=== PATIENT | female | born 1950 | race African-American/Black ===

== ENCOUNTER 2023-08-22 22:11 | Inpatient (IN) | payer MEDICARE, MEDICAID, SELFPAY ==
--- NOTE | ~2023-08-22 | CT_ITS ---
EXAMINATION: CT soft tissue neck chest wo DATE: 08/23/2023 17:00 INDICATION: Stridor. 3 months post tracheostomy reversal. Shortness of breath. Positive RSV. History of COPD. TECHNIQUE: Computed tomography (CT) of the neck and chest was performed without intravenous contrast. Automated exposure control and iterative reconstruction technique were employed. The dose-length pro duct was 1649.44 mGy-cm. COMPARISON: X-ray chest 08/22/2023 FINDINGS: Exam limited by mild motion artifact. Soft tissue neck: The thyroid gland is markedly enlarged. 1.6 cm peripherally calcified right thyroid nodule. 1.8 cm le ft thyroid nodule. The submandibular and parotid glands are symmetric. There is no cervical lympha denopathy. There are no masses identified. The superior mediastinum is unremarkable. Focal narr owing of the trachea at the thoracic inlet, minimum transverse diameter 8mm. Minimum AP diameter 9 mm . Apparent debris just distal to the stenosis seen in the chest series not evident, representing eith er interval clearance of secretions or artifact from motion/volume averaging. Parapharyngeal and pre -glottic fat planes are preserved. The orbits are unremarkable. Visualized sinuses and mastoid air cells are well aerated. There is cervical spondylosis. Severe central canal narrowing at C3-4. Mul tilevel moderate central canal stenosis on a degenerative basis, with the suggestion of congenital di ffuse cervical canal narrowing. Chest: Thoracic aorta: Ascending thoracic aortic ectasia measuring up to 4.2 cm. Moderate thoracic aortic ca lcification. Lung parenchyma and airways: Diffuse mild groundglass opacities. Mild septal thickening. Bibasilar sc ar/atelectasis. Mid trachea, distal trachea, and bronchi are patent. Thoracic inlet, axillae and chest wall: No thyroid or soft tissue mass. No axillary lymphadenopathy. Mediastinum: Dilated central pulmonary arteries as can be seen with pulmonary arterial hypertension. Enlarged pretracheal and precarinal lymph nodes. Heart and pericardium: Enlarged heart. No pericardial effusion. Normal termination of the pacer leads . Coronary artery calcifications: Moderate. Pleura: No effusion or mass. Upper abdomen: No significant finding. Thoracic bones: No acute osseous finding in the chest. Multilevel severe degenerative disc disease in the thoracic spine. Bilateral shoulder osteoarthritis. Laminectomy defects at T6 and T7. Severe cent ral canal stenosis at T10-11 secondary to degenerative disc and facet change. Multiple additional lev els of moderate central canal narrowing. 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 Marked thyroid goiter with multiple nodules. Consider outpatient thyroid ultrasound for further evalu ation. Severe cervical canal stenosis at C3-4 secondary to degenerative posterior osteophyte complex. At magno st moderate central canal stenosis at multiple additional levels, also largely due to degenerative ch anges, with likely component of diffuse congenital canal narrowing. Mild pulmonary edema and emphysematous change. Likely pulmonary arterial hypertension. Mediastinal ly mphadenopathy. Severe thoracic canal stenosis at T10-11 secondary to degenerative disc and facet change. Reviewed, dictated and finalized at location K. 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 Marked thyroid goiter with multiple nodules. Consider outpatient thyroid ultras ound for further evaluation. Severe cervical canal stenosis at C3-4 secondary to degenerative posterior oste ophyte complex. At least moderate central canal stenosis at multiple ad
--- NOTE | ~2023-08-22 | XR_ITS ---
XR chest 1V portable 08/22/2023 22:29 Indication: Dyspnea. CHF. Procedure: AP portable chest Comparison: No prior studies for comparison. Findings: Cardiomegaly. Pacemaker leads in expected position. Mild interstitial edema. No significant effusion. No pneumothorax. There is atelectasis left mid thorax. Impression: 1: Cardiomegaly with mild interstitial edema. Reviewed, dictated and finalized at location A. VICE PRESIDENT Impression: 1: Cardiomegaly with mild interstitial edema.
[2023-08-22 22:07] VITALS: PULSE 105; RESP 22; TEMP 37; O2SAT 92
[2023-08-22 22:14] VITALS: O2SAT 93
--- NOTE | 2023-08-22 22:15 | ECG_ITS ---
Measurements Intervals [place] Rate: 108 P: 50 CA: 175 QRS: -29 QRSD: 91 T: 13 QT: 333 QTc: 447 Interpretive Statements SINUS TACHYCARDIA POSSIBLE LEFT ATRIAL ENLARGEMENT [-0.1mV P WAVE IN V1/V2] INCOMPLETE RIGHT BUNDLE BRANCH BLOCK CONSIDER PREVIOUS INFERIOR WALL CT ABNORMAL ECG NO PREVIOUS ECG AVAILABLE FOR COMPARISON Electronically Signed On 08-23-2023 9:04:43 RFID DEVELOPER by Juanjose Escobar M.D.
--- NOTE | 2023-08-22 22:25 | ED.SOB ---
HPI - SOB/Dyspnea General Chief Complaint: Shortness of Breath/Dyspnea Stated Complaint: sob Time Seen by Provider: 08/22/23 22:13 History of Present Illness HPI Narrative: 73-year-old female with history of CHF, COPD, CKD, breast cancer in remission for the past 15 years, hx of cardiac arrest, atrial fibrillation chronically anticoagulated on Eliquis, HLD, prior CVA with residual right-sided weakness, and type 2 diabetes reports [facility] for shortness of breath x3 hours. Patient states she began having difficulty breathing and has associated generalized pleuritic chest pain that is nonradiating. Patient with 3 L nasal cannula baseline and is currently on 5L satting 92%. She also is reporting a productive cough that started 1 hour ago. Denies known fever, nausea or vomiting, diarrhea, abdominal pain, urinary complaints. Patient received 10 mg of Decadron and a DuoNeb EN route. Patient denies lower extremity edema, however has large amount of pitting edema on exam. All of her physicians are at [facility]. States she has been compliant with her medications and has a defibrillator in place. Paperwork from jail reviewed. Pt is a full code which she confirms. Related Data Home Medications Medication Instructions Recorded Confirmed apixaban 5 mg tablet (Eliquis) 5 mg 08/22/23 bethanechol chloride 10 mg tablet mg 08/22/23 duloxetine 60 mg capsule,delayed mg PO 08/22/23 release gabapentin 400 mg capsule mg 08/22/23 hydroxyzine HCl 25 mg tablet mg 08/22/23 ipratropium 0.5 mg-albuterol 3 mg ml inhalation 08/22/23 (2.5 mg base)/3 mL nebulization soln lisinopril 20 mg tablet mg 08/22/23 metformin 500 mg tablet mg 08/22/23 metoprolol tartrate 25 mg tablet mg 08/22/23 montelukast 10 mg tablet mg 08/22/23 ondansetron HCl 4 mg tablet mg 08/22/23 oxycodone 5 mg tablet mg 08/22/23 tizanidine 4 mg tablet mg 08/22/23 Allergies Allergy/AdvReac Type Severity Reaction Status Date / Time blue dye Allergy Other Verified 08/22/23 22:28 iohexol Allergy Other Verified 08/22/23 22:28 [From contrast - CT, X-RAY] morphine Allergy Rash Verified 08/22/23 22:28 Review of Systems Review of Systems: CONSTITUTIONAL: Denies fever, chills, or sweats. EYES: Denies visual changes, redness, or discharge. ENT: Denies rhinorrhea, congestion, sore throat, or otalgia. CARDIOVASCULAR: See HPI RESPIRATORY: See HPI GASTROINTESTINAL: Denies abdominal pain, nausea, vomiting, or diarrhea. GENITOURINARY: Denies dysuria or hematuria. SKIN: Denies rash or itching. MUSCULOSKELETAL: Denies back pain, joint pain, or myalgia. NEUROLOGIC: Denies headache, numbness, or weakness. PSYCHIATRIC: Denies anxiety or depression. Exam Narrative: GENERAL: Elderly obese woman lying in exam bed, on 5 L nasal cannula satting 92% with auditory wheezing HEAD: Normocephalic, atraumatic. EYES: PERRLA and EOMI. ENT: Nares clear, no rhinorrhea or epistaxis. Mucous membranes moist. NECK: Supple. CHEST: Absent lung sounds in the left lower lobe. Inspiratory and expiratory Wheezing throughout left upper, right upper and right lower lobes. Expiratory phase longer than inspiratory phase. HEART: Regular rate and rhythm. No murmur heard. Normal peripheral pulses. ABDOMEN: Soft, nontender, nondistended, normal active bowel sounds. EXTREMITIES: 4+ pitting edema to dorsum of bilateral feet SKIN: Warm, dry, no rash. NEURO: No focal deficits. Alert and oriented x3 Course Vital Signs Vital signs: Vital Signs Temperature 98.6 F 08/22/23 22:07 Pulse Rate 105 H 08/22/23 22:07 Respiratory Rate 22 H 08/22/23 22:07 Pulse Oximetry 92 08/22/23 22:07 Oxygen Delivery Nasal Cannula 08/22/23 22:07 Oxygen Flow Rate 3 08/22/23 22:07 Temperature 98.6 F 08/22/23 22:07 Pulse Rate 80 08/23/23 01:12 Respiratory Rate 22 H 08/23/23 01:12 Blood Pressure 138/82 08/23/23 01:12 Pulse Oximetry 94 08/23/23 01:12 Oxyg
[2023-08-22] MEDS: ALBUTEROL SULFATE NEB 2.5 MG/3 ML INH 10 MG INHALATION (22:55)
[2023-08-22] MEDS: IPRATROPIUM BR 0.02% INH SOLN 0.5 MG/2.5 ML VIAL 1 MG INHALATION (22:55)
[2023-08-22 22:56] VITALS: PULSE 89; RESP 15
[2023-08-22 23:05] LABS: Alveolar/Arterial O2 Gradient 148.1 mmHg; Base Excess ABG 6.8 mEq/l (+/-2.0); Fractional Inspired Oxygen 40 %; HCO3 ABG 34.1 mEq/l (22.0-26.0); Oxygen Content ABG 15.9 %vol (16.0-22.0); Oxygen Saturation ABG 91.5 % (95.0-100.0); Oxyhemoglobin 91.2 % THb (90.0-100.0); PO2 ABG 65.6 mmHg (80.0-100.0); PO2 FiO2 Ratio Arterial Blood 1.64 %; Total Hemoglobin 12.4 g/dL (12.0-18.0); pH ABG 7.357 (7.350-7.450)
[2023-08-22 23:08] LABS: Device NASAL CANNULA; Modified Allen's Test Pass; PCO2 ABG 62.2 mmHg (35.0-45.0); Site Drawn LEFT RADIAL
[2023-08-22 23:10] LABS: Basophils Percent Auto 0.3 % (0.2-1.2); Eosinophils Absolute Auto 0.1 K/mm3 (0-0.3); Eosinophils Percent Auto 1.1 % (0-4.4); Hematocrit 39.8 % (37.0-47.0); Hemoglobin 10.9 g/dL (12.0-15.0); Immature Granulocyte Absolute 0.02 K/mm3 (0.00-0.031); Immature Granulocyte Percent A 0.2 % (0-0.5); Lymphocytes Absolute Auto 1.75 K/mm3 (0.9-3.2); Lymphocytes Percent Auto 19.1 % (18.3-44.2); Mean Corpuscular HGB Conc 27.4 g/dl (32-36); Mean Corpuscular Hemoglobin 22.9 pg (26-34); Mean Corpuscular Volume 83.4 fl (80-100); Mean Platelet Volume 11.6 fl (7.4-10.4); Monocytes Absolute Auto 0.4 K/mm3 (0.1-0.6); Monocytes Percent Auto 3.9 % (2.6-8.5); Neutrophils Absolute Auto 6.9 K/mm3 (1.3-6.7); Neutrophils Percent Auto 75.4 % (45.5-73.1); Platelet Count Result 146 k/mm3 (150-375); Red Blood Count 4.77 M/mm3 (4.2-5.4); White Blood Count 9.2 K/mm3 (4.5-10.0)
[2023-08-22 23:20] LABS: Magnesium 1.6 mg/dL (1.6-2.3)
[2023-08-22 23:24] LABS: Alanine Aminotransferase 19 U/L (6-35); Albumin Level 3.8 g/dL (3.5-5.1); Alkaline Phosphatase 74 U/L (38-126); Anion Gap 7 mmol/L (8-16); Aspartate Amino Transferase 25 U/L (14-36); Bilirubin,Total 0.4 mg/dL (0.2-1.3); Blood Urea Nitrogen 29 mg/dL (7-17); Calcium 9.3 mg/dL (8.4-10.2); Carbon Dioxide 33 mmol/L (22-30); Chloride 100 mmol/L (98-107); Estimated CRCL calculation 71 ml/min; Estimated Glomerular Filt Rate > 60; Glucose 208 mg/dL (65-110); INR 1.2; Prothrombin Time 16.4 Seconds (11.1-14.7); Sodium 140 mmol/L (137-145)
[2023-08-22 23:27] LABS: D Dimer 0.55 ug/mL (<0.48)
[2023-08-22 23:30] LABS: NT Pro B Type Natriuretic Pept 384 pg/mL (19.9-100)
[2023-08-22 23:33] LABS: Troponin I < 0.012 ng/mL (0.000-0.034)
--- NOTE | 2023-08-22 23:48 | PC.NURSE ---
Patient stated that she would like a muscle relaxer before she takes furosemide. Patient states that she gets leg cramps when she takes furosemide. Notified EDP MICHELLE Pinedo.
[2023-08-22] MEDS: TIZANIDINE HCL 4 MG TABLET PO (23:53)
[2023-08-22] MEDS: FUROSEMIDE INJ 40 MG/4 ML VIAL IV PUSH (23:54)
[2023-08-23] VITALS (15 sets, daily range): BP systolic 117–138; BP diastolic 60–82; PULSE 56–88; RESP 16–24; TEMP 36.6–37; O2SAT 94–99; BMI 39.2
[2023-08-23 00:06] LABS: Platelet Estimate Adequate (Adequate)
[2023-08-23 00:07] LABS: Anisocytosis 3+ (NORMAL); Crenated RBC 1+ (NORMAL); Hypochromasia 2+ (NORMAL); Ovalocytes 2+ (NORMAL); Schistocytes Rare (NORMAL); Target Cells 1+ (NORMAL)
[2023-08-23 00:37] LABS: Appearance Urine Cloudy (Clear); Bacteria Urine 4+ /hpf; Bilirubin Urine Negative (Negative); Blood Urine 1+ (Negative); Color Urine Yellow (Yellow); Glucose Urine UA Negative (Negative); Ketones Urine Negative (Negative); Leukocyte Esterase Ur Trace LEU/UL (Negative); Nitrate Urine Negative (Negative); Protein Urine 1+ mg/dL (Negative); Specific Grav Ur 1.012 (1.001-1.035); Squamous Epithelial Cell Urine None seen /hpf (Few); Urobilinogen Urine 0.2 mg/dL (<2.0); pH Urine 5.5 (5.0-9.0)
[2023-08-23 00:40] LABS: Add Urine Microscopic? YES
[2023-08-23 02:03] LABS: Influenza A QL RT-PCR Negative (Negative); Influenza B QL RT-PCR Negative (Negative); RSV RNA, RT-PCR Positive (Negative); SARS-CoV-2 RNA PCR Negative (Negative)
[2023-08-23 02:51] LABS: Troponin I < 0.012 ng/mL (0.000-0.034)
[2023-08-23] MEDS: methylPREDNISolone SOD SUCC 125 MG VIAL 60 MG IV PUSH ×3 (05:23→20:40)
--- NOTE | 2023-08-23 05:47 | PM.IMHP ---
H&P: HPI History of Present Illness Date/Time: 08/23/23 05:47 Chief Complaint: Shortness of breath Narrative: 73-year-old female with a past medical history of morbid obesity, Chronic hypoxic hypercapnic respiratory failure due to COPD, prior tracheostomy with recent closure, CHF, chronic anticoagulation and type 2 diabetes mellitus who presented to the ER from [facility] due to shortness of breath. The patient reports that there been a lot of ill people at the [facility]. She has been trying to isolate herself in her room and avoid going to the dining room. Despite this about 3 or 4 days ago she became more short of breath and started having a cough. Her cough is productive of small amount of clear thin phlegm. She denies any fevers or chills. She has been feeling more fatigued. She has been having more shortness of breath with position changes. She has been having some chest discomfort with cough. She is on chronic home O2 of 3 L nasal cannula. On arrival to the ER patient was satting 92% on 3 L nasal cannula but desatted with position changes and was increased up to 5 L nasal cannula. When I arrived in the room the patient was having intermittent snorting respirations. She reports that it she has had a hoarse voice for about a week or 10 days. She denied having a hoarse voice after having her tracheostomy removed. She reports that her tracheostomy just recently closed all way about a month ago. She denies any difficulty swallowing. She denies any known history of thyroid problems. She denies dysphagia. She has not had any nausea or vomiting. She reports a good appetite. She denies known history of CHF but is on Eliquis and Lasix on her med rec. She denies documented history of COPD but has chronic hypercapnic respiratory failure and had a heavy smoking history until 15 years ago. She reports that she has been at [facility] for about 3 months after a prolonged hospital stay of about [address] [facility]. She had a tracheostomy that was removed about a month ago. She states that is suspected that she has obstructive sleep apnea but she became ill prior to having her sleep study in with never officially tested. She is not on a BiPAP at home. She has chronic urinary incontinence and denies dysuria or changes in urinary frequency. She reports she is not even aware when she needs to urinate. She usually only has a bowel movement every 3-5 days. She does not know if she has been having any bloody or black stools she is dependent upon the [facility] staff to change her. She has diabetic peripheral neuropathy but denies any history of foot wounds worse skin breakdown that she knows of. Source of information is patient and [facility] reports. The patient is a fair to good historian. She cannot give a lot of details regarding her prolonged hospital stay due to her critical condition at the time. Records request has been placed. ER physician physician communication and EMS report were also used to obtain information. The patient has never been at our facility previously. She denies known history of Review of Systems Review of Systems: 12 systems were reviewed with pertinent positives and negatives per HPI. Except as documented in the HPI, all other systems were reviewed and are negative. [facility] Past Medical History Medical History (Updated 08/23/23 @ 08:50 by Lanie Sher DO) Anxiety CHF (congestive heart failure) Chronic respiratory failure with hypoxia and hypercapnia COPD (chronic obstructive pulmonary disease) Coronary artery disease Depression Diabetic peripheral neuropathy Obesity (BMI 30-39.9) Urinary incontinence with continuous leakage Surgical History Surgical History (Updated 08/23/23 @ 08:32 by Lanie Sher DO) History of heart artery stent Multiple History of left knee replacement History of permanent cardiac pacemaker placement (~2002) History of tubal ligation Tracheostomy st
--- NOTE | 2023-08-23 07:19 | ECG_ITS ---
Measurements Intervals [place] Rate: 75 P: 46 CA: 163 QRS: -30 QRSD: 98 T: 1 QT: 400 QTc: 448 Interpretive Statements SINUS RHYTHM POSSIBLE LEFT ATRIAL ENLARGEMENT [-0.1mV P WAVE IN V1/V2] INCOMPLETE RIGHT BUNDLE BRANCH BLOCK CONSIDER PREVIOUS INFERIOR MO ABNORMAL ECG COMPARED TO ECG 08/22/2023 22:16:06 NO DIFFERENCE Electronically Signed On 08-23-2023 9:08:33 ECONOMIC FORECASTER by Juanjose Esocbar M.D.
[2023-08-23 07:58] LABS: Troponin I < 0.012 ng/mL (0.000-0.034)
[2023-08-23 08:42] LABS: Glucose Point of Care 201 mg/dl (65-105)
--- NOTE | 2023-08-23 09:26 | P.PNIM_ITS ---
Progress Note: A&P Assessment and Plan (1) [id number] respiratory failure: Qualifiers: Respiratory failure complication: hypoxia and hypercapnia Qualified Code(s): J96.21 - Acute and chronic respiratory failure with hypoxia; J96.22 - Acute and chronic respiratory failure with hypercapnia Code(s): J96.20 - Acute and chronic respiratory failure, unspecified whether with hypoxia or hypercapnia Status: Acute Assessment and Plan: 08/23/2023: * Chest x-ray showing cardiomegaly with mild interstitial edema, no pleural effusion noted * Wean O2 for an oxygen saturation greater than 88-92% * Patient has a laryngitis/hoarseness/? Stridor sound know whenever she is inhaling and talking. She states that this started on the onset of her illness. * Respiratory panel showing RSV, she was negative for influenza and COVID. * Patient was given 1 dose of racemic epi for possible stridor with no improv ement * We will continue breathing treatments and Solu-Medrol * We will also get a CT of the soft tissues of the neck * Pulmonology consulted due to her difficult airway and evaluation for stridor verses laryngitis/hoarseness * Patient currently on 4 L nasal cannula. She does have a history of COPD and wears 3 L of oxygen on a regular basis which is her baseline. * We will obtain an echo (2) Respiratory syncytial virus (RSV): Code(s): B33.8 - Other specified viral diseases Status: Acute Assessment and Plan: 08/22/2023: * Respiratory panel shows she was positive for RSV, negative for influenza or COVID * See above plan of care (3) COPD exacerbation: Code(s): J44.1 - Chronic obstructive pulmonary disease with (acute) exacerbation Status: Acute Assessment and Plan: 08/23/2023: * See above plan of care (4) CHF exacerbation: Qualifiers: Heart failure type: unspecified Qualified Code(s): I50.9 - Heart failure, unspecified Code(s): I50.9 - Heart failure, unspecified Status: Acute Assessment and Plan: 08/23/2023: * Patient states that she had fluid drained from around her heart in the past with a respiratory illness. We do not have an echo in the EMR. * Plan for an echo today. * Continue Lasix * Patient was given 1 dose Lasix 40 mg in the ED and then started on Lasix 30 mg IV push b.i.d. * Accurate I&O * Daily weight * She does have notable swelling of her bilateral lower extremities which is mild with the right being greater than the left * Notable murmur on exam * Continue cardiac telemetry (5) Stridor: Code(s): R06.1 - Stridor Status: Acute Assessment and Plan: 08/23/2023: * Patient was thought to have stridor this morning on exam during the H&P, she was given 1 dose of racemic epi with little improvement. * Pulmonology consulted * CT scan of the soft tissue of the neck ordered * See above plan of care (6) Urinary incontinence with continuous leakage: Code(s): N39.45 - Continuous leakage Status: Acute Assessment and Plan: 08/23/2023: * Patient reports incontinence and frequent urination * UA shown 1+ protein, 1+ blood, trace leukocytes, 6-10 urine rbc's, 6-10 urine wbc's, 4+ bacteria * Urine culture was obtained and is pending * Patient started on Rocephin (7) Type 2 diabetes mellitus with hyperglycemia, without long-term current use of insulin: Code(s): E11.65 - Type 2 diabetes mellitus with hyperglycemia Status: Acute Assessment and Plan: 08/23/2023: * Blood glucose ranging to a 201-218 * Hemoglobin
--- NOTE | 2023-08-23 09:26 | PM.IMPN ---
Progress Note: A&P Assessment and Plan (1) Khjqy-jo-vqwcuys respiratory failure: Qualifiers: Respiratory failure complication: hypoxia and hypercapnia Qualified Code(s): J96.21 - Acute and chronic respiratory failure with hypoxia; J96.22 - Acute and chronic respiratory failure with hypercapnia Code(s): J96.20 - Acute and chronic respiratory failure, unspecified whether with hypoxia or hypercapnia Status: Acute Assessment and Plan: 08/23/2023: Chest x-ray showing cardiomegaly with mild interstitial edema, no pleural effusion noted Wean O2 for an oxygen saturation greater than 88-92% Patient has a laryngitis/hoarseness/? Stridor sound know whenever she is inhaling and talking. She states that this started on the onset of her illness. Respiratory panel showing RSV, she was negative for influenza and COVID. Patient was given 1 dose of racemic epi for possible stridor with no improvement We will continue breathing treatments and Solu-Medrol We will also get a CT of the soft tissues of the neck Pulmonology consulted due to her difficult airway and evaluation for stridor verses laryngitis/hoarseness Patient currently on 4 L nasal cannula. She does have a history of COPD and wears 3 L of oxygen on a regular basis which is her baseline. We will obtain an echo (2) Respiratory syncytial virus (RSV): Code(s): B33.8 - Other specified viral diseases Status: Acute Assessment and Plan: 08/22/2023: Respiratory panel shows she was positive for RSV, negative for influenza or COVID See above plan of care (3) COPD exacerbation: Code(s): J44.1 - Chronic obstructive pulmonary disease with (acute) exacerbation Status: Acute Assessment and Plan: 08/23/2023: See above plan of care (4) CHF exacerbation: Qualifiers: Heart failure type: unspecified Qualified Code(s): I50.9 - Heart failure, unspecified Code(s): I50.9 - Heart failure, unspecified Status: Acute Assessment and Plan: 08/23/2023: Patient states that she had fluid drained from around her heart in the past with a respiratory illness. We do not have an echo in the EMR. Plan for an echo today. Continue Lasix Patient was given 1 dose Lasix 40 mg in the ED and then started on Lasix 30 mg IV push b.i.d. Accurate I&O Daily weight She does have notable swelling of her bilateral lower extremities which is mild with the right being greater than the left Notable murmur on exam Continue cardiac telemetry (5) Stridor: Code(s): R06.1 - Stridor Status: Acute Assessment and Plan: 08/23/2023: Patient was thought to have stridor this morning on exam during the H&P, she was given 1 dose of racemic epi with little improvement. Pulmonology consulted CT scan of the soft tissue of the neck ordered See above plan of care (6) Urinary incontinence with continuous leakage: Code(s): N39.45 - Continuous leakage Status: Acute Assessment and Plan: 08/23/2023: Patient reports incontinence and frequent urination UA shown 1+ protein, 1+ blood, trace leukocytes, 6-10 urine rbc's, 6-10 urine wbc's, 4+ bacteria Urine culture was obtained and is pending Patient started on Rocephin (7) Type 2 diabetes mellitus with hyperglycemia, without long-term current use of insulin: Code(s): E11.65 - Type 2 diabetes mellitus with hyperglycemia Status: Acute Assessment and Plan: 08/23/2023: Blood glucose ranging to a 201-218 Hemoglobin A1c 7.1 Patient placed on low-dose sliding scale insulin Metformin on hold Currently on Solu-Medrol Time Spent With Patient Time with patient: 25 - 35 minutes Subjective Date/time seen: 08/23/23 09:26 Interval history: This is a 73 year old female who presented to the hospital on 08/23/23 for increasing SOB and cough at [facility]. Patient has history of COPD with chronic hypercapnic respiratory failure w
[2023-08-23] MEDS: BETHANECHOL CHLORIDE 10 MG TABLET PO ×3 (09:33→17:08)
[2023-08-23] MEDS: lisinopriL 20 MG TABLET PO (09:33)
[2023-08-23] MEDS: metFORMIN HCL 500 MG TABLET PO (09:33)
[2023-08-23] MEDS: GABAPENTIN 400 MG CAPSULE PO ×3 (09:33→17:08)
[2023-08-23] MEDS: APIXABAN 5 MG TABLET PO ×2 (09:34→17:08)
[2023-08-23] MEDS: METOPROLOL TARTRATE 25 MG TABLET PO ×2 (09:34→17:08)
[2023-08-23] MEDS: FUROSEMIDE INJ 40 MG/4 ML VIAL IV PUSH ×2 (09:34→20:41)
[2023-08-23] MEDS: PANTOPRAZOLE 40 MG TABLET PO (09:34)
[2023-08-23] MEDS: FERROUS SULFATE 325 MG TABLET DR PO (09:34)
[2023-08-23] MEDS: DOCUSATE SODIUM 100 MG CAPSULE PO ×2 (09:34→17:08)
[2023-08-23] MEDS: DULoxetine HCL 60 MG CAPSULE.DR 120 MG PO (09:34)
[2023-08-23] MEDS: ASPIRIN 81 MG ENTERIC TABLET PO (09:35)
[2023-08-23] MEDS: TIZANIDINE HCL 4 MG TABLET PO ×2 (09:36→20:47)
[2023-08-23] MEDS: IPRATROPIUM BR 0.02% INH SOLN 0.5 MG/2.5 ML VIAL INHALATION ×3 (09:56→20:32)
[2023-08-23 10:08] LABS: Basophils Percent Auto 0.1 % (0.2-1.2); Hematocrit 38.5 % (37.0-47.0); Hemoglobin 10.5 g/dL (12.0-15.0); Immature Granulocyte Absolute 0.05 K/mm3 (0.00-0.031); Immature Granulocyte Percent A 0.4 % (0-0.5); Immature Platelet Fraction Pct 7.1 % (0.9-11.2); Lymphocytes Absolute Auto 0.75 K/mm3 (0.9-3.2); Lymphocytes Percent Auto 6.3 % (18.3-44.2); Mean Corpuscular HGB Conc 27.3 g/dl (32-36); Mean Corpuscular Hemoglobin 21.4 pg (26-34); Mean Corpuscular Volume 78.4 fl (80-100); Monocytes Absolute Auto 0.1 K/mm3 (0.1-0.6); Monocytes Percent Auto 0.7 % (2.6-8.5); Neutrophils Percent Auto 92.5 % (45.5-73.1); Platelet Count Result 183 k/mm3 (150-375); Red Blood Count 4.91 M/mm3 (4.2-5.4); Red Cell Distribution Width 19.2 % (11.5-14.5); White Blood Count 11.9 K/mm3 (4.5-10.0)
[2023-08-23 10:14] LABS: Alanine Aminotransferase 20 U/L (6-35); Albumin Level 3.8 g/dL (3.5-5.1); Alkaline Phosphatase 68 U/L (38-126); Anion Gap 10 mmol/L (8-16); Aspartate Amino Transferase 24 U/L (14-36); Bilirubin,Total 0.3 mg/dL (0.2-1.3); Blood Urea Nitrogen 27 mg/dL (7-17); Calcium 9.2 mg/dL (8.4-10.2); Carbon Dioxide 30 mmol/L (22-30); Chloride 100 mmol/L (98-107); Estimated CRCL calculation 65 ml/min; Estimated Glomerular Filt Rate > 60; Glucose 218 mg/dL (65-110); Potassium 4.7 mmol/L (3.4-5.0); Sodium 140 mmol/L (137-145)
[2023-08-23 10:38] LABS: Anisocytosis 1+ (NORMAL); Hypochromasia 2+ (NORMAL); Ovalocytes 1+ (NORMAL); Platelet Estimate Adequate (Adequate); Schistocytes None Seen (NORMAL)
[2023-08-23 10:52] LABS: Hemoglobin A1C 7.1 % (<5.7)
[2023-08-23 12:05] LABS: Glucose Point of Care 289 mg/dl (65-105)
[2023-08-23] MEDS: INSULIN ASPART (*BKC) 100 UNITS/ML SUB-Q ×3 (12:13→21:01)
[2023-08-23] MEDS: ALBUTEROL SULFATE NEB 2.5 MG/3 ML INH INHALATION ×2 (14:54→20:32)
[2023-08-23 17:30] LABS: Glucose Point of Care 263 mg/dl (65-105)
--- NOTE | 2023-08-23 18:07 | PM.CNPUL ---
Assessment and Plan Assessment and plan (1) Ptmqn-[id number] respiratory failure: Qualifiers: Respiratory failure complication: hypoxia and hypercapnia Qualified Code(s): J96.21 - Acute and chronic respiratory failure with hypoxia; J96.22 - Acute and chronic respiratory failure with hypercapnia Code(s): J96.20 - Acute and chronic respiratory failure, unspecified whether with hypoxia or hypercapnia Status: Acute Assessment and Plan: She uses O2 at 3 L/minute at the [place], has COPD with history of smoking, stopped when she was diagnosed with breast cancer. She takes no COPD medications at [place]. Would benefit from taking controller medications. She is on IV steroids now, dose not need inhaled steroids while on solumedrol. Also on nebulized albuterol and ipratropium, as well as empiric antibiotics, ángela trying to cover any suspected bacterial secondary pneumonia. Will send procalcitonin; if negative, stop antibiotics. (2) Respiratory syncytial virus (RSV): Code(s): B33.8 - Other specified viral diseases Status: Acute Assessment and Plan: She has RSV; treatment is supportive. She lives at [facility] in [place] where there have been increased numbers of people with cough and shortness of breath for over a week. There is no specific treatment for RSV unless a patient has an immunocompromising condition. 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 Her airway is smaller than normal. I am requesting records from [facility] and [facility]. If she worsens, and if we cannot address her needs for tracheal stenosis, she will need transfer to [facility]. (4) Pulmonary hypertension: Code(s): I27.20 - Pulmonary hypertension, unspecified Status: Acute Assessment and Plan: This is secondary pulmonary hypertension; she has chronic lung disease, on O2, CHF, COPD. Echo is pending. This is the first admission at [place]. Plan Cornet vibratory valve to assist with clearing secretions. Dornase kymberly - mucolytic, BID to improve clearance of secretions. O2 as needed for maintaining saturation > 92%. Procalcitonin in am. Records from [facility] and [facility] where she had her most recent episode of airway obstruction. She has moderate tracheal stenosis at the level of the thoracic inlet, narrowed to 9 mm in AP dimension and 8 mm transverse. She has RSV; treatment is supportive. Echo ordered for tomorrow. History of Present Illness History of Present Illness Consult date: 08/23/23 Requesting physician: Olivia Hayward APRN Chief complaint: COPD exacerbation, stridor, RSV Narrative: patient was seen Aug 23 at 20:20 in Room 257 History obtained from the patient and her son, Germán Dillon, by phone [phone]. NEW: Faviola Dillon is a 73-year-old woman with prior trach about a year ago, was decannulated, lives in a retirement in [place] on O2 3 L/min. She was increasingly short of breath, cough, stridor; came the ER. She had RSV with an abnormal chest CT, see below. She is on her same O2 flow that she uses at home, 3 L/min, able to speak with little difficulty. She does not have fever, discolored sputum, sore throat, GI symptoms such as N/V/D, or rash. She has a complicated back story; she has many medical co-morbidities. About a year ago while she lived at home with her son Germán, she had a respiratory crisis with airway swelling and accelerated hypertension, woke up at [facility]
[2023-08-23] MEDS: traZODone HCL 50 MG TABLET PO (20:41)
[2023-08-23] MEDS: MELATONIN 3 MG TABLET PO (20:41)
[2023-08-23] MEDS: MONTELUKAST SODIUM 10 MG TABLET PO (20:41)
[2023-08-23] MEDS: ATORVASTATIN 40 MG TABLET 80 MG PO (20:41)
[2023-08-23] MEDS: oxyCODONE HCL (*CRX) 5 MG TAB IR PO (20:47)
[2023-08-23] MEDS: ALPRAZolam (*CRX) 0.25 MG TABLET PO (20:47)
[2023-08-23] MEDS: hydrOXYzine HCL 25 MG TABLET PO (20:47)
[2023-08-23 21:55] LABS: Glucose Point of Care 261 mg/dl (65-105)
[2023-08-24] VITALS (19 sets, daily range): BP systolic 138–140; BP diastolic 61–69; PULSE 61–102; RESP 20–22; TEMP 35.9–36.1; O2SAT 95–100
--- NOTE | 2023-08-24 | ECHO_ITS ---
Patient Info Name: Faviola Dillon Age: 73 years : 1950 Gender: Female Ht: 65 in Wt: 238 lbs BSA: 2.28 m2 HR: 66 bpm BP: 138 / 69 mmHg Heart Rhythm: Sinus Rhythm Technical Quality: Poor Exam Date: 08/24/2023 11:22 AM Exam Location: Echo Lab Patient Status: Outpatient Admit Date: 08/23/2023 Staff Ordering Physician: Olivia Hayward APRN Attending Provider: Lanie Sher DO Referring Physician: Mainor GALVIN; Exam Type: CA echo doppler color flow Study Info Indications - chf Complete two-dimensional, color flow and Doppler transthoracic echocardiogram is performed with contrast to opacify the left ventricle and to improve the deliniation of the left ventricle endocardial borders. Contrast/Agitated Saline Contrast/Ag. Saline: Definity Amount: 1.00 ml Existing IV Access: Yes IV Access Condition: patent with no signs of infiltration Reason for Poor Study: patient body habitus Summary 1. Technically difficult study. Definity contrast administered. 2. Left atrial chamber dimension is moderate to severely enlarged. 3. There is no aortic valve stenosis with a peak velocity of 180 cm/s, mean gradient of 6 mmHg, and aortic valve area of 2.1 cm2. 4. Left ventricular chamber dimension is normal. 5. Left ventricular systolic function is normal, estimated at 65-70%. 6. There is mildly increased left ventricular wall thickness. 7. The left ventricular diastolic function is grade I diastolic dysfunction. 8. Right atrial chamber dimension is severely enlarged. 9. There is mild tricuspid valve regurgitation. 10. No pulmonary hypertension, estimated pulmonary arterial systolic pressure is 32 mmHg. Left Ventricle Technically difficult study. Definity contrast administered. Left ventricular chamber dimension is normal. Left ventricular systolic function is normal, estimated at 65-70%. There is mildly increased left ventricular wall thickness. The left ventricular diastolic function is grade I diastolic dysfunction. Right Ventricle Right ventricular chamber dimension is normal. Right ventricular systolic function is normal. Linear artifact in right ventricle suggestive of catheter(s), pacemaker lead(s), or ICD lead(s). Left Atria Left atrial chamber dimension is moderate to severely enlarged. Right Atria Right atrial chamber dimension is severely enlarged. Linear artifact in the right atrium suggestive of catheter(s), pacemaker lead(s), or ICD lead(s). Aortic Valve There is no aortic valve stenosis with a peak velocity of 180 cm/s, mean gradient of 6 mmHg, and aortic valve area of 2.1 cm2. The aortic valve is trileaflet. There is no aortic valve stenosis. There is no aortic valve regurgitation. There is mild aortic valve calcification. Pulmonic Valve The pulmonic valve is not well visualized. There is mild pulmonic regurgitation. Mitral Valve The mitral valve has normal leaflets. There is trace mitral valve regurgitation. Tricuspid Valve The tricuspid valve leaflets are normal. There is mild tricuspid valve regurgitation. No pulmonary hypertension, estimated pulmonary arterial systolic pressure is 32 mmHg. Inferior Vena Cava Normal inferior vena cava with >50% collapse upon inspiration consistent with normal right atrial pressure, 5 mmHg. Aorta The aortic root size at the sinus of Valsalva is normal. The prox ascending aorta size is dilated. There is mild aortic atherosclerosis. Left Ventricular Outflow Tract Name
[2023-08-24] MEDS: ALBUTEROL SULFATE NEB 2.5 MG/3 ML INH INHALATION ×5 (03:16→20:34)
[2023-08-24] MEDS: IPRATROPIUM BR 0.02% INH SOLN 0.5 MG/2.5 ML VIAL INHALATION ×4 (03:16→20:33)
[2023-08-24] MEDS: methylPREDNISolone SOD SUCC 125 MG VIAL 60 MG IV PUSH ×2 (05:10→13:24)
[2023-08-24 06:10] LABS: Basophils Percent Auto 0.1 % (0.2-1.2); Hematocrit 34.9 % (37.0-47.0); Hemoglobin 9.8 g/dL (12.0-15.0); Immature Granulocyte Absolute 0.05 K/mm3 (0.00-0.031); Immature Granulocyte Percent A 0.4 % (0-0.5); Immature Platelet Fraction Pct 8.3 % (0.9-11.2); Lymphocytes Absolute Auto 1.23 K/mm3 (0.9-3.2); Lymphocytes Percent Auto 10.7 % (18.3-44.2); Mean Corpuscular HGB Conc 28.1 g/dl (32-36); Mean Corpuscular Hemoglobin 21.4 pg (26-34); Mean Corpuscular Volume 76.4 fl (80-100); Mean Platelet Volume 11.7 fl (7.4-10.4); Monocytes Absolute Auto 0.4 K/mm3 (0.1-0.6); Monocytes Percent Auto 3.2 % (2.6-8.5); Neutrophils Absolute Auto 9.9 K/mm3 (1.3-6.7); Neutrophils Percent Auto 85.6 % (45.5-73.1); Platelet Count Result 186 k/mm3 (150-375); Red Blood Count 4.57 M/mm3 (4.2-5.4); Red Cell Distribution Width 18.4 % (11.5-14.5); White Blood Count 11.5 K/mm3 (4.5-10.0)
[2023-08-24 06:21] LABS: Alanine Aminotransferase 18 U/L (6-35); Albumin Level 3.7 g/dL (3.5-5.1); Alkaline Phosphatase 69 U/L (38-126); Anion Gap 6 mmol/L (8-16); Aspartate Amino Transferase 23 U/L (14-36); Bilirubin,Total 0.4 mg/dL (0.2-1.3); Blood Urea Nitrogen 36 mg/dL (7-17); Calcium 9.1 mg/dL (8.4-10.2); Carbon Dioxide 34 mmol/L (22-30); Chloride 97 mmol/L (98-107); Estimated CRCL calculation 53 ml/min; Estimated Glomerular Filt Rate > 60; Glucose 248 mg/dL (65-110); Potassium 4.4 mmol/L (3.4-5.0); Sodium 137 mmol/L (137-145)
[2023-08-24 07:05] LABS: Procalcitonin 0.1 ng/mL
[2023-08-24 07:57] LABS: Hypochromasia 3+ (NORMAL); Ovalocytes 2+ (NORMAL); Platelet Estimate Adequate (Adequate); Schistocytes None Seen (NORMAL)
[2023-08-24 08:25] LABS: Glucose Point of Care 217 mg/dl (65-105)
[2023-08-24] MEDS: DORNASE ALFA INH SOLN 1 MG/ML 2.5 ML AMP 2.5 MG INHALATION ×2 (08:57→20:34)
[2023-08-24] MEDS: ALPRAZolam (*CRX) 0.25 MG TABLET PO ×2 (09:27→21:37)
[2023-08-24] MEDS: oxyCODONE HCL (*CRX) 5 MG TAB IR PO ×2 (09:27→21:38)
[2023-08-24] MEDS: DOCUSATE SODIUM 100 MG CAPSULE PO ×2 (09:28→17:18)
[2023-08-24] MEDS: BETHANECHOL CHLORIDE 10 MG TABLET PO ×3 (09:28→17:18)
[2023-08-24] MEDS: PANTOPRAZOLE 40 MG TABLET PO (09:28)
[2023-08-24] MEDS: DULoxetine HCL 60 MG CAPSULE.DR 120 MG PO (09:28)
[2023-08-24] MEDS: FERROUS SULFATE 325 MG TABLET DR PO (09:28)
[2023-08-24] MEDS: GABAPENTIN 400 MG CAPSULE PO ×3 (09:29→17:18)
[2023-08-24] MEDS: APIXABAN 5 MG TABLET PO ×2 (09:29→17:18)
[2023-08-24] MEDS: METOPROLOL TARTRATE 25 MG TABLET PO ×2 (09:29→17:18)
[2023-08-24] MEDS: ASPIRIN 81 MG ENTERIC TABLET PO (09:29)
[2023-08-24] MEDS: lisinopriL 20 MG TABLET PO (09:30)
[2023-08-24] MEDS: FUROSEMIDE INJ 40 MG/4 ML VIAL IV PUSH ×2 (09:30→21:37)
[2023-08-24] MEDS: INSULIN ASPART (*BKC) 100 UNITS/ML SUB-Q ×4 (09:37→21:19)
[2023-08-24 12:05] LABS: Glucose Point of Care 301 mg/dl (65-105)
--- NOTE | 2023-08-24 15:53 | P.PNIM_ITS ---
Progress Note: A&P Assessment and Plan (1) Obixz-ji-wdqbzqt respiratory failure: Qualifiers: Respiratory failure complication: hypoxia and hypercapnia Qualified Code(s): J96.21 - Acute and chronic respiratory failure with hypoxia; J96.22 - Acute and chronic respiratory failure with hypercapnia Code(s): J96.20 - Acute and chronic respiratory failure, unspecified whether with hypoxia or hypercapnia Status: Acute Assessment and Plan: 08/23/2023: * Chest x-ray showing cardiomegaly with mild interstitial edema, no pleural effusion noted * Wean O2 for an oxygen saturation greater than 88-92% * Patient has a laryngitis/hoarseness/? Stridor sound know whenever she is inhaling and talking. She states that this started on the onset of her illness. * Respiratory panel showing RSV, she was negative for influenza and COVID. * Patient was given 1 dose of racemic epi for possible stridor with no improv ement * We will continue breathing treatments and Solu-Medrol * We will also get a CT of the soft tissues of the neck * Pulmonology consulted due to her difficult airway and evaluation for stridor verses laryngitis/hoarseness * Patient currently on 4 L nasal cannula. She does have a history of COPD and wears 3 L of oxygen on a regular basis which is her baseline. * We will obtain an echo 08/24/23: * CT of the soft tissues of the neck revealed moderate stenosis at the level of thoracic inlet, where the trachea is narrowed to 9mm by 8mm transverse, marked thyroid goiter with multiple nodules. * Pulmonary following * Currently on 4L NC. Baseline is 3L NC. * Echo today (2) Respiratory syncytial virus (RSV): Code(s): B33.8 - Other specified viral diseases Status: Acute Assessment and Plan: 08/22/2023: * Respiratory panel shows she was positive for RSV, negative for influenza or COVID * See above plan of care 08/24/23: * see above plan of care (3) COPD exacerbation: Code(s): J44.1 - Chronic obstructive pulmonary disease with (acute) exacerbation Status: Acute Assessment and Plan: 08/23/2023: * See above plan of care (4) CHF exacerbation: Qualifiers: Heart failure type: unspecified Qualified Code(s): I50.9 - Heart failure, unspecified Code(s): I50.9 - Heart failure, unspecified Status: Acute Assessment and Plan: 08/23/2023: * Patient states that she had fluid drained from around her heart in the past with a respiratory illness. We do not have an echo in the EMR. * Plan for an echo today. * Continue Lasix * Patient was given 1 dose Lasix 40 mg in the ED and then started on Lasix 30 mg IV push b.i.d. * Accurate I&O * Daily weight * She does have notable swelling of her bilateral lower extremities which is mild with the right being greater than the left * Notable murmur on exam * Continue cardiac telemetry 08/24/23: * No change to current treatment plan * Echo today (5) Stridor: Code(s): R06.1 - Stridor Status: Acute Assessment and Plan: 08/23/2023: * Patient was thought to have stridor this morning on exam during the H&P, she was given 1 dose of racemic epi with little improvement. * Pulmonology consulted * CT scan of the soft tissue of the neck ordered * See above plan of care 08/24/23: * CT of soft tissue of neck showing tracheal stenosis, see above. * Pulmonary following (6) Urinary incontinence with continuous leakage: Code(s): N39.45 - Continuous leakage Status: Acute Assessment and Plan:
--- NOTE | 2023-08-24 15:53 | PM.IMPN ---
Progress Note: A&P Assessment and Plan (1) Vqanz-sy-rcapunh respiratory failure: Qualifiers: Respiratory failure complication: hypoxia and hypercapnia Qualified Code(s): J96.21 - Acute and chronic respiratory failure with hypoxia; J96.22 - Acute and chronic respiratory failure with hypercapnia Code(s): J96.20 - Acute and chronic respiratory failure, unspecified whether with hypoxia or hypercapnia Status: Acute Assessment and Plan: 08/23/2023: Chest x-ray showing cardiomegaly with mild interstitial edema, no pleural effusion noted Wean O2 for an oxygen saturation greater than 88-92% Patient has a laryngitis/hoarseness/? Stridor sound know whenever she is inhaling and talking. She states that this started on the onset of her illness. Respiratory panel showing RSV, she was negative for influenza and COVID. Patient was given 1 dose of racemic epi for possible stridor with no improvement We will continue breathing treatments and Solu-Medrol We will also get a CT of the soft tissues of the neck Pulmonology consulted due to her difficult airway and evaluation for stridor verses laryngitis/hoarseness Patient currently on 4 L nasal cannula. She does have a history of COPD and wears 3 L of oxygen on a regular basis which is her baseline. We will obtain an echo 08/24/23: CT of the soft tissues of the neck revealed moderate stenosis at the level of thoracic inlet, where the trachea is narrowed to 9mm by 8mm transverse, marked thyroid goiter with multiple nodules. Pulmonary following Currently on 4L NC. Baseline is 3L NC. Echo today (2) Respiratory syncytial virus (RSV): Code(s): B33.8 - Other specified viral diseases Status: Acute Assessment and Plan: 08/22/2023: Respiratory panel shows she was positive for RSV, negative for influenza or COVID See above plan of care 08/24/23: see above plan of care (3) COPD exacerbation: Code(s): J44.1 - Chronic obstructive pulmonary disease with (acute) exacerbation Status: Acute Assessment and Plan: 08/23/2023: See above plan of care (4) CHF exacerbation: Qualifiers: Heart failure type: unspecified Qualified Code(s): I50.9 - Heart failure, unspecified Code(s): I50.9 - Heart failure, unspecified Status: Acute Assessment and Plan: 08/23/2023: Patient states that she had fluid drained from around her heart in the past with a respiratory illness. We do not have an echo in the EMR. Plan for an echo today. Continue Lasix Patient was given 1 dose Lasix 40 mg in the ED and then started on Lasix 30 mg IV push b.i.d. Accurate I&O Daily weight She does have notable swelling of her bilateral lower extremities which is mild with the right being greater than the left Notable murmur on exam Continue cardiac telemetry 08/24/23: No change to current treatment plan Echo today (5) Stridor: Code(s): R06.1 - Stridor Status: Acute Assessment and Plan: 08/23/2023: Patient was thought to have stridor this morning on exam during the H&P, she was given 1 dose of racemic epi with little improvement. Pulmonology consulted CT scan of the soft tissue of the neck ordered See above plan of care 08/24/23: CT of soft tissue of neck showing tracheal stenosis, see above. Pulmonary following (6) Urinary incontinence with continuous leakage: Code(s): N39.45 - Continuous leakage Status: Acute Assessment and Plan: 08/23/2023: Patient reports incontinence and frequent urination UA shown 1+ protein, 1+ blood, trace leukocytes, 6-10 urine rbc's, 6-10 urine wbc's, 4+ bacteria Urine culture was obtained and is pending Patient started on Rocephin 08/24/23: Urine culture showing E. coli on preliminary Continue IV Rocephin while awaiting culture sensitivites. (7) Type 2 diabetes mellitus with hyperglycemia, without long-term current use of insulin:
[2023-08-24 16:51] LABS: Glucose Point of Care 229 mg/dl (65-105)
--- NOTE | 2023-08-24 20:01 | PM.PNPUL ---
Progress Note: A&P Assessment and Plan (1) Uxwqd-hz-gbbgajq respiratory failure: Qualifiers: Respiratory failure complication: hypoxia and hypercapnia Qualified Code(s): J96.21 - Acute and chronic respiratory failure with hypoxia; J96.22 - Acute and chronic respiratory failure with hypercapnia Code(s): J96.20 - Acute and chronic respiratory failure, unspecified whether with hypoxia or hypercapnia Status: Acute Assessment and Plan: She uses O2 at 3 L/minute at the [place], has COPD with history of smoking, stopped when she was diagnosed with breast cancer. She takes no COPD medications at [place]. Would benefit from taking controller medications. She is on IV steroids now, dose not need inhaled steroids while on solumedrol. Also on nebulized albuterol and ipratropium, as well as empiric antibiotics. Procalcitonin today is negative. Excellent. She has E coli in urine, on antibiotics for that. (2) Respiratory syncytial virus (RSV): Code(s): B33.8 - Other specified viral diseases Status: Acute Assessment and Plan: She has RSV; treatment is supportive.? She lives at [facility] in [place] where there have been increased numbers of people with cough and shortness of breath for over a week.? There is no specific treatment for RSV unless a patient has an immunocompromising condition. 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 Her airway is smaller than normal. I reviewd her records from [facility] and [facility], see the first part of the HPI from Aug 24. (4) Pulmonary hypertension: Code(s): I27.20 - Pulmonary hypertension, unspecified Status: Acute Assessment and Plan: This is secondary pulmonary hypertension; she has chronic lung disease, on O2, CHF, COPD. Echo is pending. This is the first admission at [place]. The echo today does not show high PA pressures but she has severely enlarged right atrium. Plan Continue Cornet vibratory valve to assist with clearing secretions. Continue Dornase kymberly - mucolytic, BID to improve clearance of secretions. Continue solumedrol with lower dose, 40 mg Q 8 hr, bronchodilators. Continue O2 as needed for maintaining saturation > 92%. Now at 5 L/min and uses 3 L/min at [place]. Procalcitonin is negative, but she has E coli in urine, so will defer antibiotics to hospitalist. Records from [facility] and [facility] reviewed. She has moderate tracheal stenosis at the level of the thoracic inlet, narrowed to 9 mm in AP dimension and 8 mm transverse. She has RSV; treatment is supportive. She has RA enlargement; this is due to her atrial fib, TR, and pulm HTN. Maybe she did not have a good window to see her RVSP. She needs Physical Therapy; had stroke, gets 45 min PT a day, helping with her R hemiparesis, helping her tolerate standing. Tomorrow will call ENT at [facility] to see when her appt is; she missed one or two because of lack of transportatoin from [place] to the ENT office. She needs follow up for the stenosis. Subjective Date/time seen: 08/24/23 20:01 Interval history: hospital follow up 08/24: Seeing her for RSV from [place] and tracheal stenosis, COPD; she is feeling better, has not been out of bed since arrival. She is on iv solumedrol 60 mg Q 8 hr, nebulized bronchodilators, Pulmozyme & Cornet valve. She looks better, not as distressed. echo: Technically difficult study.? Definity contrast administered. ? 2. Left atrial chamber dimension is moder
[2023-08-24] MEDS: methylPREDNISolone SOD SUCC 40 MG VIAL IV PUSH (21:37)
[2023-08-24] MEDS: ATORVASTATIN 40 MG TABLET 80 MG PO (21:37)
[2023-08-24] MEDS: MELATONIN 3 MG TABLET PO (21:38)
[2023-08-24] MEDS: MONTELUKAST SODIUM 10 MG TABLET PO (21:38)
[2023-08-24] MEDS: hydrOXYzine HCL 25 MG TABLET PO (21:38)
[2023-08-24] MEDS: traZODone HCL 50 MG TABLET PO (21:38)
[2023-08-24] MEDS: TIZANIDINE HCL 4 MG TABLET PO (21:38)
[2023-08-25] VITALS (17 sets, daily range): BP systolic 129–150; BP diastolic 65–68; PULSE 61–94; RESP 18–20; TEMP 35.9–36.1; O2SAT 95–100
[2023-08-25 01:58] LABS: Glucose Point of Care 293 mg/dl (65-105)
[2023-08-25] MEDS: IPRATROPIUM BR 0.02% INH SOLN 0.5 MG/2.5 ML VIAL INHALATION ×3 (02:24→20:05)
[2023-08-25] MEDS: ALBUTEROL SULFATE NEB 2.5 MG/3 ML INH INHALATION ×3 (02:24→20:05)
[2023-08-25] MEDS: methylPREDNISolone SOD SUCC 40 MG VIAL IV PUSH ×3 (05:40→20:46)
[2023-08-25 05:41] LABS: Basophils Percent Auto 0.1 % (0.2-1.2); Hematocrit 36.3 % (37.0-47.0); Hemoglobin 10.3 g/dL (12.0-15.0); Immature Granulocyte Absolute 0.05 K/mm3 (0.00-0.031); Immature Granulocyte Percent A 0.4 % (0-0.5); Immature Platelet Fraction Pct 9.4 % (0.9-11.2); Lymphocytes Absolute Auto 1.18 K/mm3 (0.9-3.2); Lymphocytes Percent Auto 8.5 % (18.3-44.2); Mean Corpuscular HGB Conc 28.4 g/dl (32-36); Mean Corpuscular Hemoglobin 21.7 pg (26-34); Mean Corpuscular Volume 76.4 fl (80-100); Mean Platelet Volume 12.2 fl (7.4-10.4); Monocytes Absolute Auto 0.6 K/mm3 (0.1-0.6); Monocytes Percent Auto 4.4 % (2.6-8.5); Neutrophils Percent Auto 86.6 % (45.5-73.1); Platelet Count Result 205 k/mm3 (150-375); Red Blood Count 4.75 M/mm3 (4.2-5.4); Red Cell Distribution Width 18.6 % (11.5-14.5); White Blood Count 13.8 K/mm3 (4.5-10.0)
[2023-08-25 05:46] LABS: Alanine Aminotransferase 18 U/L (6-35); Albumin Level 3.7 g/dL (3.5-5.1); Alkaline Phosphatase 68 U/L (38-126); Anion Gap 6 mmol/L (8-16); Aspartate Amino Transferase 20 U/L (14-36); Bilirubin,Total 0.4 mg/dL (0.2-1.3); Blood Urea Nitrogen 38 mg/dL (7-17); Calcium 8.8 mg/dL (8.4-10.2); Carbon Dioxide 35 mmol/L (22-30); Chloride 97 mmol/L (98-107); Estimated CRCL calculation 65 ml/min; Estimated Glomerular Filt Rate > 60; Glucose 223 mg/dL (65-110); Potassium 4.1 mmol/L (3.4-5.0); Sodium 138 mmol/L (137-145)
[2023-08-25 07:12] LABS: Anisocytosis 1+ (NORMAL); Hypochromasia 2+ (NORMAL); Platelet Estimate Adequate (Adequate); Schistocytes None Seen (NORMAL)
--- NOTE | 2023-08-25 08:20 | P.PNIM_ITS ---
Progress Note: A&P Assessment and Plan (1) Kbegu-xl-fplqjnk respiratory failure: Qualifiers: Respiratory failure complication: hypoxia and hypercapnia Qualified Code(s): J96.21 - Acute and chronic respiratory failure with hypoxia; J96.22 - Acute and chronic respiratory failure with hypercapnia Code(s): J96.20 - Acute and chronic respiratory failure, unspecified whether with hypoxia or hypercapnia Status: Acute Assessment and Plan: 08/23/2023: * Chest x-ray showing cardiomegaly with mild interstitial edema, no pleural effusion noted * Wean O2 for an oxygen saturation greater than 88-92% * Patient has a laryngitis/hoarseness/? Stridor sound know whenever she is inhaling and talking. She states that this started on the onset of her illness. * Respiratory panel showing RSV, she was negative for influenza and COVID. * Patient was given 1 dose of racemic epi for possible stridor with no improv ement * We will continue breathing treatments and Solu-Medrol * We will also get a CT of the soft tissues of the neck * Pulmonology consulted due to her difficult airway and evaluation for stridor verses laryngitis/hoarseness * Patient currently on 4 L nasal cannula. She does have a history of COPD and wears 3 L of oxygen on a regular basis which is her baseline. * We will obtain an echo 08/24/23: * CT of the soft tissues of the neck revealed moderate stenosis at the level of thoracic inlet, where the trachea is narrowed to 9mm by 8mm transverse, marked thyroid goiter with multiple nodules. * Pulmonary following * Currently on 4L NC. Baseline is 3L [place]. * Echo today 08/25/23: * Echo shown normal LV systolic function with an EF of 65-70%, grade 1 LV diastolic dysfunction, right atrial enlargement, no pulmonary hypertension, RV systolic function is normal. * Back down to baseline oxygen requirements of 3L NC * Continue with current treatment plan * Pulmonary following and started the decrease on the methylprednisolone to 40 mg IV q.8 hours (2) Respiratory syncytial virus (RSV): Code(s): B33.8 - Other specified viral diseases Status: Acute Assessment and Plan: 08/23/2023: * Respiratory panel shows she was positive for RSV, negative for influenza or COVID * See above plan of care 08/24/23: * see above plan of care (3) COPD exacerbation: Code(s): J44.1 - Chronic obstructive pulmonary disease with (acute) exacerbation Status: Acute Assessment and Plan: 08/23/2023: * See above plan of care (4) CHF exacerbation: Qualifiers: Heart failure type: unspecified Qualified Code(s): I50.9 - Heart failure, unspecified Code(s): I50.9 - Heart failure, unspecified Status: Acute Assessment and Plan: 08/23/2023: * Patient states that she had fluid drained from around her heart in the past with a respiratory illness. We do not have an echo in the EMR. * Plan for an echo today. * Continue Lasix * Patient was given 1 dose Lasix 40 mg in the ED and then started on Lasix 30 mg IV push b.i.d. * Accurate I&O * Daily weight * She does have notable swelling of her bilateral lower extremities which is mild with the right being greater than the left * Notable murmur on exam * Continue cardiac telemetry 08/24/23: * No change to current treatment plan * Echo today 08/25/23: * Echo shown normal LV systolic function with an EF of 65-70%, grade 1 LV diastolic dysfunction, right atrial enlargement, no pulmonary hypertension, RV systolic function is normal. * no change to current treatment p
--- NOTE | 2023-08-25 08:20 | PM.IMPN ---
Progress Note: A&P Assessment and Plan (1) Phnge-if-sdrjmlv respiratory failure: Qualifiers: Respiratory failure complication: hypoxia and hypercapnia Qualified Code(s): J96.21 - Acute and chronic respiratory failure with hypoxia; J96.22 - Acute and chronic respiratory failure with hypercapnia Code(s): J96.20 - Acute and chronic respiratory failure, unspecified whether with hypoxia or hypercapnia Status: Acute Assessment and Plan: 08/23/2023: Chest x-ray showing cardiomegaly with mild interstitial edema, no pleural effusion noted Wean O2 for an oxygen saturation greater than 88-92% Patient has a laryngitis/hoarseness/? Stridor sound know whenever she is inhaling and talking. She states that this started on the onset of her illness. Respiratory panel showing RSV, she was negative for influenza and COVID. Patient was given 1 dose of racemic epi for possible stridor with no improvement We will continue breathing treatments and Solu-Medrol We will also get a CT of the soft tissues of the neck Pulmonology consulted due to her difficult airway and evaluation for stridor verses laryngitis/hoarseness Patient currently on 4 L nasal cannula. She does have a history of COPD and wears 3 L of oxygen on a regular basis which is her baseline. We will obtain an echo 08/24/23: CT of the soft tissues of the neck revealed moderate stenosis at the level of thoracic inlet, where the trachea is narrowed to 9mm by 8mm transverse, marked thyroid goiter with multiple nodules. Pulmonary following Currently on 4L NC. Baseline is 3L NC. Echo today 08/25/23: Echo shown normal LV systolic function with an EF of 65-70%, grade 1 LV diastolic dysfunction, right atrial enlargement, no pulmonary hypertension, RV systolic function is normal. Back down to baseline oxygen requirements of 3L NC Continue with current treatment plan Pulmonary following and started the decrease on the methylprednisolone to 40 mg IV q.8 hours (2) Respiratory syncytial virus (RSV): Code(s): B33.8 - Other specified viral diseases Status: Acute Assessment and Plan: 08/23/2023: Respiratory panel shows she was positive for RSV, negative for influenza or COVID See above plan of care 08/24/23: see above plan of care (3) COPD exacerbation: Code(s): J44.1 - Chronic obstructive pulmonary disease with (acute) exacerbation Status: Acute Assessment and Plan: 08/23/2023: See above plan of care (4) CHF exacerbation: Qualifiers: Heart failure type: unspecified Qualified Code(s): I50.9 - Heart failure, unspecified Code(s): I50.9 - Heart failure, unspecified Status: Acute Assessment and Plan: 08/23/2023: Patient states that she had fluid drained from around her heart in the past with a respiratory illness. We do not have an echo in the EMR. Plan for an echo today. Continue Lasix Patient was given 1 dose Lasix 40 mg in the ED and then started on Lasix 30 mg IV push b.i.d. Accurate I&O Daily weight She does have notable swelling of her bilateral lower extremities which is mild with the right being greater than the left Notable murmur on exam Continue cardiac telemetry 08/24/23: No change to current treatment plan Echo today 08/25/23: Echo shown normal LV systolic function with an EF of 65-70%, grade 1 LV diastolic dysfunction, right atrial enlargement, no pulmonary hypertension, RV systolic function is normal. no change to current treatment plan (5) Stridor: Code(s): R06.1 - Stridor Status: Acute Assessment and Plan: 08/23/2023: Patient was thought to have stridor this morning on exam during the H&P, she was given 1 dose of racemic epi with little improvement. Pulmonology consulted CT scan of the soft tissue of the neck ordered See above plan of care 08/24/23: CT of soft tissue of neck showing tracheal stenosis, see above. Pulmonary fol
[2023-08-25 08:40] LABS: Glucose Point of Care 212 mg/dl (65-105)
[2023-08-25] MEDS: lisinopriL 20 MG TABLET PO (09:17)
[2023-08-25] MEDS: DULoxetine HCL 60 MG CAPSULE.DR 120 MG PO (09:17)
[2023-08-25] MEDS: GABAPENTIN 400 MG CAPSULE PO ×3 (09:17→17:00)
[2023-08-25] MEDS: FERROUS SULFATE 325 MG TABLET DR PO (09:17)
[2023-08-25] MEDS: TIZANIDINE HCL 4 MG TABLET PO ×2 (09:18→20:41)
[2023-08-25] MEDS: ALPRAZolam (*CRX) 0.25 MG TABLET PO ×2 (09:18→20:41)
[2023-08-25] MEDS: ASPIRIN 81 MG ENTERIC TABLET PO (09:18)
[2023-08-25] MEDS: oxyCODONE HCL (*CRX) 5 MG TAB IR PO ×2 (09:18→20:41)
[2023-08-25] MEDS: BETHANECHOL CHLORIDE 10 MG TABLET PO ×3 (09:18→17:00)
[2023-08-25] MEDS: PANTOPRAZOLE 40 MG TABLET PO (09:18)
[2023-08-25] MEDS: APIXABAN 5 MG TABLET PO ×2 (09:18→17:00)
[2023-08-25] MEDS: METOPROLOL TARTRATE 25 MG TABLET PO ×2 (09:18→17:00)
[2023-08-25] MEDS: DOCUSATE SODIUM 100 MG CAPSULE PO ×2 (09:18→17:00)
[2023-08-25] MEDS: FUROSEMIDE INJ 40 MG/4 ML VIAL IV PUSH ×2 (09:19→20:39)
[2023-08-25] MEDS: INSULIN ASPART (*BKC) 100 UNITS/ML SUB-Q ×4 (09:20→20:37)
[2023-08-25 12:18] LABS: Glucose Point of Care 341 mg/dl (65-105)
--- NOTE | 2023-08-25 13:02 | PCPTNOTE ---
Attempted PT evaluation, pt reports she is a surekha lift at baseline/dependent with ADLs and pt refused therapy stating I'm probably going tomorrow (referring to discharging). RN aware.
[2023-08-25 17:05] LABS: Glucose Point of Care 254 mg/dl (65-105)
[2023-08-25] MEDS: DORNASE ALFA INH SOLN 1 MG/ML 2.5 ML AMP 2.5 MG INHALATION (20:05)
[2023-08-25] MEDS: traZODone HCL 50 MG TABLET PO (20:42)
[2023-08-25] MEDS: MELATONIN 3 MG TABLET PO (20:42)
[2023-08-25] MEDS: MONTELUKAST SODIUM 10 MG TABLET PO (20:42)
[2023-08-25] MEDS: ATORVASTATIN 40 MG TABLET 80 MG PO (20:42)
[2023-08-25 21:55] LABS: Glucose Point of Care 254 mg/dl (65-105)
--- NOTE | 2023-08-25 22:27 | PM.PNPUL ---
Progress Note: A&P Assessment and Plan (1) Jlkgq-ad-kyntdxx respiratory failure: Qualifiers: Respiratory failure complication: hypoxia and hypercapnia Qualified Code(s): J96.21 - Acute and chronic respiratory failure with hypoxia; J96.22 - Acute and chronic respiratory failure with hypercapnia Code(s): J96.20 - Acute and chronic respiratory failure, unspecified whether with hypoxia or hypercapnia Status: Acute Assessment and Plan: She uses O2 at 3 L/minute at the [place], has COPD with history of smoking, stopped when she was diagnosed with breast cancer. She takes no COPD medications at [place]. Would benefit from taking controller medications. She is on IV steroids now, dose not need inhaled steroids while on solumedrol. Also on nebulized albuterol and ipratropium, as well as empiric antibiotics. Procalcitonin today is negative. Excellent. She has E coli in urine, on antibiotics for that. (2) Respiratory syncytial virus (RSV): Code(s): B33.8 - Other specified viral diseases Status: Acute Assessment and Plan: She has RSV; treatment is supportive.? She lives at [facility] in [place] where there have been increased numbers of people with cough and shortness of breath for over a week.? There is no specific treatment for RSV unless a patient has an immunocompromising condition. 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 Her airway is smaller than normal. I reviewd her records from [facility] and [facility] on Aug 24 and summarized the findings in the HPI. (4) Pulmonary hypertension: Code(s): I27.20 - Pulmonary hypertension, unspecified Status: Acute Assessment and Plan: This is secondary pulmonary hypertension; she has chronic lung disease, on O2, CHF, COPD. Echo is pending. This is the first admission at [facility]. The echo today does not show high PA pressures but she has severely enlarged right atrium. Plan Continue Cornet vibratory valve to assist with clearing secretions. Continue Dornase kymberly - mucolytic, BID to improve clearance of secretions. Continue solumedrol with lower dose, 40 mg Q 8 hr, bronchodilators. Continue O2 as needed for maintaining saturation > 92%. Now at 3 L /min which is what she uses at [place]. Procalcitonin is negative, but she has E coli in urine, so will defer antibiotics to hospitalist. Records from [facility] and [facility] reviewed. She has moderate tracheal stenosis at the level of the thoracic inlet, narrowed to 9 mm in AP dimension and 8 mm transverse. She has RSV; treatment is supportive. She has RA enlargement; this is due to her atrial fib, TR, and pulm HTN. Maybe she did not have a good window to see her RVSP. She needs Physical Therapy; had stroke, gets 45 min PT a day, helping with her R hemiparesis, helping her tolerate standing. Call ENT at [facility] to see when her appt is; she missed one or two because of lack of transportatoin from [place] to the ENT office. She needs follow up for the stenosis. Subjective Date/time seen: 08/25/23 22:27 Interval history: hospital follow up : 08/25; Seeing her for RSV from [place] and tracheal stenosis, COPD;she is better, not struggling. She is on 3 L/min which is home oxygen flow. She is resting, I did not wake her. I reviewed chart and talked with RN. Tomorrow, we need to call the ENT office at [facility], make sure that she has a follow up appt for her tracheal stenosis. 08/24: Seeing her for RSV from [place]
[2023-08-26] VITALS (14 sets, daily range): BP systolic 136–152; BP diastolic 66–76; PULSE 58–97; RESP 16–20; TEMP 36–36.2; O2SAT 94–100
[2023-08-26] MEDS: IPRATROPIUM BR 0.02% INH SOLN 0.5 MG/2.5 ML VIAL INHALATION ×3 (02:24→13:38)
[2023-08-26] MEDS: ALBUTEROL SULFATE NEB 2.5 MG/3 ML INH INHALATION ×3 (02:24→13:38)
[2023-08-26 04:52] LABS: Basophils Percent Auto 0.1 % (0.2-1.2); Hematocrit 36.6 % (37.0-47.0); Hemoglobin 10.4 g/dL (12.0-15.0); Immature Granulocyte Absolute 0.07 K/mm3 (0.00-0.031); Immature Granulocyte Percent A 0.6 % (0-0.5); Lymphocytes Percent Auto 9.8 % (18.3-44.2); Mean Corpuscular HGB Conc 28.4 g/dl (32-36); Mean Corpuscular Hemoglobin 21.6 pg (26-34); Mean Corpuscular Volume 75.9 fl (80-100); Mean Platelet Volume 11.8 fl (7.4-10.4); Monocytes Absolute Auto 0.7 K/mm3 (0.1-0.6); Monocytes Percent Auto 5.9 % (2.6-8.5); Neutrophils Absolute Auto 9.3 K/mm3 (1.3-6.7); Neutrophils Percent Auto 83.6 % (45.5-73.1); Platelet Count Result 202 k/mm3 (150-375); Red Blood Count 4.82 M/mm3 (4.2-5.4); Red Cell Distribution Width 18.5 % (11.5-14.5); White Blood Count 11.2 K/mm3 (4.5-10.0)
[2023-08-26 04:59] LABS: Alanine Aminotransferase 19 U/L (6-35); Albumin Level 3.7 g/dL (3.5-5.1); Alkaline Phosphatase 64 U/L (38-126); Aspartate Amino Transferase 23 U/L (14-36); Bilirubin,Total 0.5 mg/dL (0.2-1.3); Blood Urea Nitrogen 43 mg/dL (7-17); Calcium 8.4 mg/dL (8.4-10.2); Carbon Dioxide > 40 mmol/L (22-30); Chloride 95 mmol/L (98-107); Estimated CRCL calculation 59 ml/min; Estimated Glomerular Filt Rate > 60; Glucose 247 mg/dL (65-110); Potassium 4.1 mmol/L (3.4-5.0); Sodium 138 mmol/L (137-145)
[2023-08-26] MEDS: methylPREDNISolone SOD SUCC 40 MG VIAL IV PUSH ×2 (05:14→15:38)
[2023-08-26] MEDS: CEPHALEXIN 500 MG CAPSULE PO ×2 (05:14→12:20)
[2023-08-26 06:30] LABS: Hypochromasia 3+ (NORMAL); Lymphocytes Absolute Manual 1.23 K/mm3 (1.1-4.5); Monocytes Absolute Manual 0.44 K/mm3 (0.1-0.90); Monocytes Percent Manual 4 % (3-9); Neutrophils Percent Manual 85 % (46-73); Ovalocytes 2+ (NORMAL); Platelet Estimate Adequate (Adequate); Schistocytes None Seen (NORMAL); Stomatocytes 1+ (NORMAL); Tear Drop Cells 2+ (NORMAL); Total Cells Counted 100
[2023-08-26 06:31] LABS: Target Cells 1+ (NORMAL)
[2023-08-26] MEDS: DORNASE ALFA INH SOLN 1 MG/ML 2.5 ML AMP 2.5 MG INHALATION (07:43)
[2023-08-26 08:52] LABS: Glucose Point of Care 201 mg/dl (65-105)
[2023-08-26] MEDS: ASPIRIN 81 MG ENTERIC TABLET PO (09:07)
[2023-08-26] MEDS: INSULIN ASPART (*BKC) 100 UNITS/ML SUB-Q ×2 (09:07→12:20)
[2023-08-26] MEDS: DOCUSATE SODIUM 100 MG CAPSULE PO (09:07)
[2023-08-26] MEDS: GABAPENTIN 400 MG CAPSULE PO ×2 (09:07→12:20)
[2023-08-26] MEDS: BETHANECHOL CHLORIDE 10 MG TABLET PO ×2 (09:08→12:20)
[2023-08-26] MEDS: APIXABAN 5 MG TABLET PO (09:08)
[2023-08-26] MEDS: FERROUS SULFATE 325 MG TABLET DR PO (09:08)
[2023-08-26] MEDS: PANTOPRAZOLE 40 MG TABLET PO (09:08)
[2023-08-26] MEDS: lisinopriL 20 MG TABLET PO (09:08)
[2023-08-26] MEDS: DULoxetine HCL 60 MG CAPSULE.DR 120 MG PO (09:08)
[2023-08-26] MEDS: oxyCODONE HCL (*CRX) 5 MG TAB IR PO (09:12)
[2023-08-26] MEDS: METOPROLOL TARTRATE 25 MG TABLET PO (09:17)
[2023-08-26 11:48] LABS: Glucose Point of Care 437 mg/dl (65-105)
[2023-08-26] MEDS: INSULIN ASPART (*BKC) 100 UNITS/ML 10 UNITS SUB-Q (12:20)
--- NOTE | 2023-08-26 14:18 | PM.PNPUL ---
Progress Note: A&P Assessment and Plan (1) Mepmz-rk-lrcjtrq respiratory failure: Qualifiers: Respiratory failure complication: hypoxia and hypercapnia Qualified Code(s): J96.21 - Acute and chronic respiratory failure with hypoxia; J96.22 - Acute and chronic respiratory failure with hypercapnia Code(s): J96.20 - Acute and chronic respiratory failure, unspecified whether with hypoxia or hypercapnia Status: Acute Assessment and Plan: Resolved. Back on 3 L/min. She uses O2 at 3 L/minute at the [place], has COPD with history of smoking, stopped when she was diagnosed with breast cancer. She takes no COPD medications at [place]. Would benefit from taking controller medications. Oral prednisone is ok for going home. Please start Anoro one puff a day for her today to have at [place]. She would like to have a nebulizer for use at the [place]. Procalcitonin was negative. Was treated for E coli in urine. (2) Respiratory syncytial virus (RSV): Code(s): B33.8 - Other specified viral diseases Status: Acute Assessment and Plan: She has RSV; treatment is supportive.? She lives at [facility] in [place] where there have been increased numbers of people with cough and shortness of breath for over a week.? There is no specific treatment for RSV unless a patient has an immunocompromising condition. 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 Her airway is smaller than normal. I reviewd her records from [facility] and [facility] on Aug 24 and summarized the findings in the HPI. (4) Pulmonary hypertension: Code(s): I27.20 - Pulmonary hypertension, unspecified Status: Acute Assessment and Plan: This is secondary pulmonary hypertension; she has chronic lung disease, on O2, CHF, COPD. Echo is pending. This is the first admission at [place]. The echo today does not show high PA pressures but she has severely enlarged right atrium. Plan Ok for discharge today to her [place]. She can keep the Cornet vibratory valve to assist with clearing secretion, even at [place]. SHe does not have to use it. oral prednisone, taper. Start Anoro one puff a day to use at [place] for COPD, and order new nebulizer and albuterol 1.25 mg to use BID p.r.n. shortness of breath or wheezing at [place]. O2 at 3 L/min. Follow up appt with DR Ortega Sep 26, 2023 at 11:00 am, [facility] ENT Division. Continue O2 as needed for maintaining saturation > 92%. Now at 3 L /min which is what she uses at [place]. She has moderate tracheal stenosis at the level of the thoracic inlet, narrowed to 9 mm in AP dimension and 8 mm transverse. She has RA enlargement; this is due to her atrial fib, TR, and pulm HTN. Maybe she did not have a good window to see her RVSP. She does not need to follow up with us in pulmonary office, but she can if she wants to. I talked with Kayce Carter PA-C about patient today Subjective Date/time seen: 08/26/23 14:18 Interval history: hospital follow up : 08/26 : Seeing her for RSV from NH and tracheal stenosis, COPD, much better, feels ready to go home. She has an appt for Dr Arreola Sep 26 2023 at 11:30 am at [facility] ENT office. She does not need to come to see us in pulm office. d/W Kayce Carter PA-C. 08/25; Seeing her for RSV from NH and tracheal stenosis, COPD;she is better, not struggling. She is on 3 L/min which is home oxygen flow. She is resting, I did not wake her. I reviewed chart and talked with RN. Nicole
--- NOTE | 2023-08-26 14:26 | PM.DS ---
DS: Admitting Diagnosis Discharge Date 08/26/23 Admitting Diagnosis RSV, COPD exacerbation DS: Discharge Diagnosis Discharge Diagnosis (1) Xoveu-sn-krmpxrp respiratory failure: Qualifiers: Respiratory failure complication: hypoxia and hypercapnia Qualified Code(s): J96.21 - Acute and chronic respiratory failure with hypoxia; J96.22 - Acute and chronic respiratory failure with hypercapnia Code(s): J96.20 - Acute and chronic respiratory failure, unspecified whether with hypoxia or hypercapnia Status: Acute (2) Respiratory syncytial virus (RSV): Code(s): B33.8 - Other specified viral diseases Status: Acute (3) COPD exacerbation: Code(s): J44.1 - Chronic obstructive pulmonary disease with (acute) exacerbation Status: Acute (4) CHF exacerbation: Qualifiers: Heart failure type: unspecified Qualified Code(s): I50.9 - Heart failure, unspecified Code(s): I50.9 - Heart failure, unspecified Status: Acute (5) Stridor: Code(s): R06.1 - Stridor Status: Acute (6) Urinary incontinence with continuous leakage: Code(s): N39.45 - Continuous leakage Status: Acute (7) Type 2 diabetes mellitus with hyperglycemia, without long-term current use of insulin: Code(s): E11.65 - Type 2 diabetes mellitus with hyperglycemia Status: Acute DS: Summary Hospital Course Hospital Course: This is a 73-year-old female with a past medical history of obesity, chronic hypoxic hypercapnia respiratory failure due to COPD, prior tracheostomy with recent closure, CHF, chronic anticoagulation, type 2 diabetes presents to the ED from [facility] due to shortness of breath. She had been having some dull chest discomfort with cough. She is chronically on 3 L of oxygen. In the ED she was satting at 92% and desatted with position changes. Chest x-ray showed cardiomegaly with mild interstitial edema with no pleural effusion noted. She was tested for respiratory panel with positive RSV but negative for influenza and COVID. She was started on DuoNebs. Started on IV Solu-Medrol treatment. Pulmonology consulted. Pulmonology recommended starting patient on COPD medications at her longterm. Due to patient's narrowed airway pulmonology also recommending follow-up with ENT for her tracheal stenosis due to tracheostomy. Patient's IV steroids were T-cell oriented as necessary. Patient was able to go back down to her home O2 setting. Admission she was also found to have a UTI which urine cultures came back positive for E coli sensitive to Rocephin. Patient was transition to Keflex. Discussed case with check viewer and they are agreeable to discharge patient. Her labs and vital signs are stable she has been cleared for discharge at this time. Time Spent with Patient Time attestation: Total time spent providing and/or coordinating discharge services: Exam Narrative: GENERAL: Comfortable, no acute distress HENMT: moist mucous membranes EYES: EOM intact b/l NECK: no lymphadenopathy RESPIRATORY: clear to auscultation CARDIO: RRR GI: soft, nontender, bowel sounds present SKIN: no rashes EXTREMITIES: no edema, redness or tenderness DS: Data Data Completed and Pending Labs on day of discharge: Labs from last 24 hours 08/26/23 08/26/23 08/26/23 11:44 08:49 04:33 WBC 11.2 H RBC 4.82 Hgb 10.4 L Hct 36.6 L MCV 75.9 L MCH 21.6 L MCHC 28.4 L RDW 18.5 H Plt Count 202 MPV 11.8 H Immature Gran % (Auto) 0.6 H Neut % (Auto) 83.6 H Lymph % (Auto) 9.8 L [place] % (Auto) 5.9 Eos % (Auto) 0.0 Baso % (Auto) 0.1 L Lymph # (Auto) 1.10 [place] # (Auto) 0.7 H Eos # (Auto) 0.0 Baso # (Auto) 0.0 Abs Immat Gran (auto) 0.07 H Absolute Neuts (auto) 9.3 H Absolute Nucleated RBC 0.0 Total Counted 100 Neutrophils % (Manual) 85 H Lymphocytes % (Manual) 11.0 L Monocytes % (Manual
== END 2023-08-26 16:30 | DRG 189 ==
LOC: ANHED 08-23 02:18 → ANH2MED 08-23 02:57
PROVIDERS: Emergency Medicine; Internal Medicine Critical Care Medicine; Nurse Practitioner Acute Care; Admitting Provider Internal Medicine; Emergency Provider Physician Assistant; PCP Internal Medicine; Visit Provider Internal Medicine
DX: J96.22 Acute and chronic respiratory failure with hypercapnia (principal); J44.1 Chronic obstructive pulmonary disease with (acute) exacerbation; I48.20 Chronic atrial fibrillation, unspecified; I69.351 Hemiplegia and hemiparesis following cerebral infarction affecting right dominant side; J95.03 Malfunction of tracheostomy stoma; N39.0 Urinary tract infection, site not specified; B97.4 Respiratory syncytial virus as the cause of diseases classified elsewhere; B96.20 Unspecified Escherichia coli [E. coli] as the cause of diseases classified elsewhere; I50.9 Heart failure, unspecified; I27.20 Pulmonary hypertension, unspecified; I25.10 Atherosclerotic heart disease of native coronary artery without angina pectoris; N18.9 Chronic kidney disease, unspecified; E78.5 Hyperlipidemia, unspecified; E11.22 Type 2 diabetes mellitus with diabetic chronic kidney disease; E66.01 Morbid (severe) obesity due to excess calories; E11.42 Type 2 diabetes mellitus with diabetic polyneuropathy; M48.02 Spinal stenosis, cervical region; R32 Unspecified urinary incontinence; F32.A Depression, unspecified; F41.9 Anxiety disorder, unspecified; Z20.822 Contact with and (suspected) exposure to COVID-19; Z96.652 Presence of left artificial knee joint; Z79.01 Long term (current) use of anticoagulants; Z79.82 Long term (current) use of aspirin; Z85.3 Personal history of malignant neoplasm of breast; Z86.74 Personal history of sudden cardiac arrest; Z95.810 Presence of automatic (implantable) cardiac defibrillator; Z68.39 Body mass index [BMI] 39.0-39.9, adult; Z99.3 Dependence on wheelchair; Z99.81 Dependence on supplemental oxygen; Z87.891 Personal history of nicotine dependence
CPT/HCPCS: 36415; 36600; 70490; 71045; 71250; 80053; 81001; 82805; 82948; 83036; 83735; 83880; 84145; 84484; 85025; 85055; 85380; 85610; 85730; 87077; 87086; 87186; 87637; 93005; 93306; 94640; 96374; 96375; 96376; 99285; A9270; G0378; J0696; J1815; J1940; J2920; J2930

== ENCOUNTER 2023-08-27 19:25 | Inpatient (IN) | payer MEDICARE, MEDICAID, SELFPAY ==
[2023-08-27] VITALS (9 sets, daily range): BP systolic 120–141; BP diastolic 71–84; PULSE 61–86; RESP 18–25; TEMP 36.8–37.3; O2SAT 90–100
--- NOTE | ~2023-08-27 | XR_ITS ---
EXAMINATION: XR chest 1V portable Exam Date/Time: 08/27/2023 19:48 PAYROLL ACCOUNTANT HISTORY: cough/hemoptysis Comparison: 08/22/2023. RESULT: Lines, tubes, and devices: Left chest pacer with intact leads. Lungs and pleura: Patchy subsegmental bibasilar airspace disease. Low volumes with crowding. Cardiomediastinal silhouette: Stable. Other: No acute osseous or upper abdominal finding. IMPRESSION: Bibasilar atelectasis/consolidation. Reviewed, dictated and finalized at location K. OLL ACCOUNTANT
--- NOTE | ~2023-08-27 | CT_ITS ---
EXAMINATION: CT chest high resolution wo co DATE: 08/27/2023 23:38 INDICATION: high resolution scan, hemoptysis TECHNIQUE: Computed tomography (CT) of the chest was performed without intravenous contrast, includin g high-resolution images of the lungs. Automated exposure control and iterative reconstruction techni que were employed. The dose-length product was 955.18 mGy-cm. COMPARISON: CT neck and chest 08/23/2023. FINDINGS: CHEST: Thoracic aorta: Ascending aortic ectasia. Moderate aortic calcification. Lung parenchyma and airways: Patchy, somewhat acinar and consolidative opacities with surrounding jackie undglass opacity in the bilateral lower lobes and to a lesser extent in the dependent left upper lobe . Dependent left lower lobe consolidation. Mild emphysematous change. Mild peripheral reticulation at the right anterior lung. Redemonstration of tracheal stenosis at the thoracic inlet. Suggestion of s oft tissue swelling/edema in the glottic region of the airway. Thoracic inlet, axillae and chest wall: Left chest pacer with intact leads, in good position. Enlarge d thyroid with multiple nodules. No axillary lymphadenopathy. Mediastinum: Dilated central pulmonary arteries. Enlarged precarinal and paratracheal lymph nodes. Heart and pericardium: Enlarged heart size. No pericardial effusion. Coronary artery calcifications: Moderate. Pleura: No effusion or mass. Upper abdomen: No significant finding. Thoracic bones: No acute osseous finding in the chest. Multilevel severe degenerative disc disease. B ilateral shoulder osteoarthritis. Laminectomy defects at T6 and T7. Severe central canal stenosis at T10-11, on a degenerative basis. Multiple additional levels of moderate central canal narrowing. IMPRESSION: Suggestion of glottic soft tissue swelling/edema which nearly occludes the airway. Correlate with res piratory status and symptoms of hoarseness or stridor. In the absence of such symptoms, this is proba jhonny secondary to artifact from head/neck rotation and breath holding. Acinar and ground glass pulmonary opacities in the dependent bilateral lower lobes, with a small focu s in the dependent left upper lobe, suspicious for hemo-aspiration. Dependent left lower lobe consolidation may represent atelectasis or pneumonia. Mediastinal lymphadenopathy. Moderate tracheal stenosis at the thoracic inlet, stable. Marked thyroid goiter with multiple nodules. Consider outpatient thyroid ultrasound. Reviewed, dictated and finalized at location K. KER IMPRESSION: Suggestion of glottic soft tissue swelling/edema which nearly occludes the airw ay. Correlate with respiratory status and symptoms of hoarseness or stridor. In the absence of such symptoms, this is probably secondary to artifact from head /neck rotation and breath holding. Acinar and ground glass pulmonary opacities in the dependent bilateral lower lo bes, with a small focus in the dependent left upper lobe, suspicious for hemo-a spiration. Dependent left lower lobe consolidation may represent atelectasis or pneumonia. Mediastinal lymphadenopathy. Moderate tracheal stenosis at the thoracic inlet, stable. Marked thyroid goiter with multiple nodules. Consider outpatient thyroid ultras ound.
--- NOTE | 2023-08-27 19:31 | ECG_ITS ---
Measurements Intervals [place] Rate: 73 P: 44 WA: 160 QRS: -17 QRSD: 93 T: -4 QT: 386 QTc: 428 Interpretive Statements SINUS RHYTHM POSSIBLE LEFT ATRIAL ENLARGEMENT [-0.1mV P WAVE IN V1/V2] CONSIDER PREVIOUS INFERIOR WALL WA POSSIBLE LEFT VENTRICULAR HYPERTROPHY [VOLTAGE CRITERIA PLUS LAE OR QRS WIDENING] ABNORMAL ECG COMPARED TO ECG 08/23/2023 07:27:40 NO SIGNIFICANT CHANGES Electronically Signed On 08-28-2023 14:59:17 CONTINUOUS MINER OPERATOR by Juanjose Escobar M.D.
[2023-08-27 19:57] LABS: Basophils Percent Auto 0.2 % (0.2-1.2); Eosinophils Absolute Auto 0.1 K/mm3 (0-0.3); Eosinophils Percent Auto 1.2 % (0-4.4); Hematocrit 39.9 % (37.0-47.0); Hemoglobin 11.3 g/dL (12.0-15.0); Immature Granulocyte Absolute 0.07 K/mm3 (0.00-0.031); Immature Granulocyte Percent A 0.7 % (0-0.5); Lymphocytes Absolute Auto 2.18 K/mm3 (0.9-3.2); Lymphocytes Percent Auto 21.8 % (18.3-44.2); Mean Corpuscular HGB Conc 28.3 g/dl (32-36); Mean Corpuscular Hemoglobin 21.6 pg (26-34); Mean Corpuscular Volume 76.1 fl (80-100); Monocytes Absolute Auto 0.8 K/mm3 (0.1-0.6); Neutrophils Absolute Auto 6.8 K/mm3 (1.3-6.7); Neutrophils Percent Auto 68.1 % (45.5-73.1); Platelet Count Result 188 k/mm3 (150-375); Red Blood Count 5.24 M/mm3 (4.2-5.4); Red Cell Distribution Width 18.9 % (11.5-14.5)
[2023-08-27] MEDS: ALBUTEROL SULFATE NEB 2.5 MG/3 ML INH 15 MG INHALATION (20:02)
[2023-08-27] MEDS: IPRATROPIUM BR 0.02% INH SOLN 0.5 MG/2.5 ML VIAL 1.5 MG INHALATION (20:02)
[2023-08-27 20:05] LABS: Alanine Aminotransferase 27 U/L (6-35); Albumin Level 3.8 g/dL (3.5-5.1); Alkaline Phosphatase 69 U/L (38-126); Anion Gap 6 mmol/L (8-16); Aspartate Amino Transferase 30 U/L (14-36); Bilirubin,Total 0.5 mg/dL (0.2-1.3); Blood Urea Nitrogen 34 mg/dL (7-17); Calcium 8.7 mg/dL (8.4-10.2); Carbon Dioxide 35 mmol/L (22-30); Chloride 98 mmol/L (98-107); Estimated CRCL calculation 66 ml/min; Estimated Glomerular Filt Rate > 60; Glucose 220 mg/dL (65-110); Potassium 3.9 mmol/L (3.4-5.0); Sodium 139 mmol/L (137-145)
[2023-08-27 20:07] LABS: Hypochromasia 1+ (NORMAL); Ovalocytes 1+ (NORMAL); Platelet Estimate Adequate (Adequate); Schistocytes None Seen (NORMAL); Target Cells 1+ (NORMAL)
--- NOTE | 2023-08-27 20:09 | ED.SOB ---
HPI - SOB/Dyspnea General Chief Complaint: Shortness of Breath/Dyspnea Stated Complaint: coughing blood Time Seen by Provider: 08/27/23 19:34 History of Present Illness HPI Narrative: 73-year-old female present to the emergency department for evaluation of hemoptysis. Patient had a recent hospitalization for RSV. patient is normally on 3 L of oxygen at baseline but has required increased oxygen. Patient has history of COPD, CHF, type 2 diabetes pulmonary hypertension Related Data Home Medications Medication Instructions Recorded Confirmed apixaban 5 mg tablet (Eliquis) 5 mg PO BID 08/22/23 08/28/23 bethanechol chloride 10 mg tablet 10 mg PO TID 08/22/23 08/28/23 duloxetine 60 mg capsule,delayed 120 mg PO DAILY 08/22/23 08/28/23 release gabapentin 400 mg capsule 400 mg PO TID 08/22/23 08/28/23 hydroxyzine HCl 25 mg tablet 25 mg PO Q6H PRN Anxiety 08/22/23 08/28/23 lisinopril 20 mg tablet 20 mg PO DAILY 08/22/23 08/28/23 metformin 500 mg tablet 500 mg PO BID 08/22/23 08/28/23 metoprolol tartrate 25 mg tablet 25 mg PO BID 08/22/23 08/28/23 montelukast 10 mg tablet 10 mg PO QHS 08/22/23 08/28/23 ondansetron HCl 4 mg tablet 4 mg PO Q6H PRN Nausea And Vomiting 08/22/23 08/28/23 oxycodone 5 mg tablet 5 mg PO Q6H PRN Pain (Scale Score 08/22/23 08/28/23 4-6) tizanidine 4 mg tablet 4 mg PO Q8H PRN Cramps 08/22/23 08/28/23 acetaminophen 500 mg tablet 500 mg PO Q6H PRN Pain (Scale 08/23/23 08/28/23 Score 1-3) alprazolam 0.25 mg tablet 0.25 mg PO TID PRN Anxiety 08/23/23 08/28/23 aspirin 81 mg tablet,delayed 81 mg PO DAILY 08/23/23 08/28/23 release atorvastatin 80 mg tablet 80 mg PO HS 08/23/23 08/28/23 calcium carbonate 500 mg calcium 1,000 mg PO Q4H PRN Gastric Reflux 08/23/23 08/28/23 (1,250 mg) chewable tablet docusate sodium 100 mg capsule 100 mg PO BID 08/23/23 08/28/23 ergocalciferol (vitamin D2) 50,000 50,000 unit PO WEEKLY 08/23/23 08/28/23 unit tablet ferrous sulfate 325 mg (65 mg 325 mg PO DAILY 08/23/23 08/28/23 iron) tablet furosemide 20 mg tablet 20 mg PO DAILY 08/23/23 08/28/23 guaifenesin 100 mg/5 mL oral liquid 200 mg PO Q8H PRN Dyspnea 08/23/23 08/28/23 melatonin 3 mg tablet 3 mg PO HS 08/23/23 08/28/23 pantoprazole 40 mg tablet,delayed 40 mg PO QAM 08/23/23 08/28/23 release polyethylene glycol 3350 17 17 g PO DAILY PRN Constipation 08/23/23 08/28/23 gram/dose oral powder trazodone 50 mg tablet 50 mg PO HS 08/23/23 08/28/23 Allergies Allergy/AdvReac Type Severity Reaction Status Date / Time blue dye Allergy Other Verified 08/22/23 22:28 iohexol Allergy Other Verified 08/22/23 22:28 [From contrast - CT, X-RAY] morphine Allergy Rash Verified 08/22/23 22:28 Review of Systems Review of Systems: All systems reviewed & are unremarkable except as noted in HPI and below PMFSH Past Medical History Medical History (Updated 08/28/23 @ 00:22 by Aguila Crawford MD) Anxiety CHF (congestive heart failure) Chronic respiratory failure with hypoxia and hypercapnia COPD (chronic obstructive pulmonary disease) Coronary artery disease Depression Diabetic peripheral neuropathy Obesity (BMI 30-39.9) 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 Urinary incontinence with continuous leakage Surgical History Surgical History (Updated 08/23/23 @ 08:32 by Lanie Sher DO) History of heart artery stent Multiple History of left knee replacement History of permanent cardiac pacemaker placement (~2002) History of tubal ligation Tracheostomy status Tracheostomy removed 07/2023 Family History Family History (Updated 08/23/23 @ 08:32 by Lanie Sher DO) Other Coronary artery disease Diabetes mellitus Social History Social History (Updated 08/23/23 @ 08:35 by Lanie Sher DO) Social History: Patient lived with her significant other of approximately 50 years until summer 2022 when she became ill. She has been wheelchair dependent since 2019 or 2020. She used to drink alcohol ev
[2023-08-27 23:33] LABS: INR 1.2; Prothrombin Time 15.9 Seconds (11.1-14.7)
[2023-08-27 23:34] LABS: Partial Thromboplastin Time 31.7 SECONDS (22.3-36.8)
[2023-08-28] VITALS (7 sets, daily range): BP systolic 139–159; BP diastolic 63–75; PULSE 68–73; RESP 19–100; TEMP 35.6–36.7; O2SAT 20–100; BMI 39.4
--- NOTE | 2023-08-28 01:29 | PC.NURSE ---
Only one set of cultures was able to be drawn from patient. EDP Dr. Crawford notified.
--- NOTE | 2023-08-28 02:52 | ADMGEN ---
This patient, Faviola Dillon, was admitted to [facility] Room 328-01. Patient/family oriented to hospital policies and general routines including ID bracelet, bed and alarms, visiting hours, pain management, procedures, bathroom and other care routines, personal items, smoking policy, room service/diet, and visiting hours. Information on how to activate the Rapid Response Team has been discussed. Patient/Family are encouraged to report perceived risks to care and to ask questions if they do not understand what they are told or what they should do.
[2023-08-28] MEDS: AZITHROMYCIN 500 MG/NS 250 ML 500 MG/250 ML BAG 250 MG IVPB (03:06)
[2023-08-28] MEDS: FUROSEMIDE 20 MG TABLET PO (11:16)
[2023-08-28] MEDS: METOPROLOL TARTRATE 25 MG TABLET PO ×2 (11:16→20:13)
[2023-08-28] MEDS: DOCUSATE SODIUM 100 MG CAPSULE PO ×2 (11:16→17:48)
[2023-08-28] MEDS: TIZANIDINE HCL 4 MG TABLET PO ×2 (11:16→20:16)
[2023-08-28] MEDS: GABAPENTIN 400 MG CAPSULE PO ×3 (11:17→17:48)
[2023-08-28] MEDS: FERROUS SULFATE 325 MG TABLET DR BY MOUTH (11:17)
[2023-08-28] MEDS: lisinopriL 20 MG TABLET PO (11:17)
[2023-08-28] MEDS: APIXABAN 5 MG TABLET PO ×2 (11:17→17:48)
[2023-08-28] MEDS: ASPIRIN 81 MG ENTERIC TABLET PO (11:17)
[2023-08-28] MEDS: metFORMIN HCL 500 MG TABLET PO (11:17)
[2023-08-28] MEDS: ALPRAZolam (*CRX) 0.25 MG TABLET PO ×2 (11:17→20:15)
[2023-08-28] MEDS: DULoxetine HCL 60 MG CAPSULE.DR 120 MG PO (11:17)
[2023-08-28] MEDS: PANTOPRAZOLE 40 MG TABLET PO (11:17)
[2023-08-28] MEDS: oxyCODONE HCL (*CRX) 5 MG TAB IR PO (11:25)
[2023-08-28] MEDS: guaiFENesin 200 MG/10 ML UDC PO (11:28)
--- NOTE | 2023-08-28 12:46 | PM.IMHP ---
H&P: HPI History of Present Illness Date/Time: 08/28/23 12:46 Chief Complaint: This is a 73-year-old female with a past medical history of obesity, chronic hypoxic hypercapnic respiratory failure due to COPD, prior tracheostomy with recent closure, CHF, chronic anticoagulation and type 2 diabetes mellitus who presented to the ER from [facility] due to hemoptysis. Patient recently admitted due to hypoxia related to RSV. She was given steroids in the hospital and discharged home on a steroid taper. Patient returned to her detention and was doing well. stated that her roommate always heats their room very warm causing her to cough. While she was coughing she did notice that sputum was bright red. She stated that what she was coughing up reminded her of the mucus she had when her trach was in place. Her symptoms developed 08/27/2023. She has had intermittent sputum production that was blood tinged. She states that when she gets in her coughing fits she does have some chest discomfort, dizziness, lightheadedness shortness of breath. She is not requiring more than her home oxygen level which is [address] of the chest showing acinar and ground-glass opacities in the bilateral lower lobes and a small focus in the dependent left upper lobe suspicious for him on aspiration, left lower lobe consolidation, mediastinal lymphadenopathy, tracheal stenosis, and marked quarter. Pulmonology consulted as they had seen patient during last hospital stay. Patient started on ceftriaxone and azithromycin for pneumonia and steroids will be continued on the patient. 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 She has been wheelchair dependent since 2019 or 2020. She used to drink alcohol every weekend until she was in her 40s or so. She now only rarely drinks alcohol. She denies any illicit substance use. Her and her significant other raised 2 sons and 1 daughter. Code status: Full code Surrogate decision maker: Germán (son) Smoking status: Never smoker Smoking end date: 09/07/07 Alcohol intake: never Substance use: never Do You Feel Safe in your Home?: Yes Lack of Transportation: No Lack of Food: Never True Current Housing: I Have Housing Concerned About Future Housing: No Difficulty Paying Gas/Electric Bills: No Difficulty Paying for Meds: No Currently Unemployed: No Education: High School Diploma/GED Difficulty w/ Childcare or Family Care: No Spiritual care concerns: No Meds Home Medications and Allergies Home Medications Medication Instructions Recorded Confirmed Type apixaban 5 mg tablet (Eliquis) 5 mg PO BID 08/22/23 08/28/23 History bethanechol chloride 10 mg tablet 10 mg PO TID 08/22/23 08/28/23 History duloxetine 60 mg capsule,delayed 120 mg PO DAILY 08/22/23 08/28/23 History release gabapentin 400 mg capsule 400 mg PO TID 08/22/23 08/28/23 History hydroxyzine HCl 25 mg t
[2023-08-28] MEDS: BENZONATATE 100 MG CAPSULE PO ×2 (15:24→17:48)
[2023-08-28] MEDS: BETHANECHOL CHLORIDE 10 MG TABLET PO ×2 (15:25→17:48)
--- NOTE | 2023-08-28 17:15 | PM.CNPUL ---
Assessment and Plan Assessment and plan (1) Hemoptysis: Code(s): R04.2 - Hemoptysis Status: Acute Assessment and Plan: This started yesterday morning August 27, coming from below the glottis. Dr. Luan fulton from above in did not see anything in the upper airway. (2) Pneumonia: Code(s): J18.9 - Pneumonia, unspecified organism Status: Acute Assessment and Plan: New bibasilar infiltrates and a left upper lobe hemo aspiration on high-resolution chest CT August 27. She is on empiric antibiotics with normal oxygenation on 3 L which is her usual oxygen requirement at the senior living. 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 She did require more oxygen during the last admission. History of Present Illness History of Present Illness Consult date: 08/28/23 Requesting physician: Kayce Carter, VIRAJ Chief complaint: Hemoptysis/Hemoaspiration Narrative: pt was seen at Aug 28 at 17:15 Room 328. NEW: Faviola Dillon is a 73 yo female who was in the hospital with RSV, August 22 through August 26, with acute on chronic hypoxemic respiratory failure, RSV, tracheal stenosis secondary to a complicated tracheostomy. SHe was on more O2 on admission, 5 L/min, treated with steroids, discharged to [facility] Aug 26 in stable condition. She was on her usual O2 at discharge 3 L/min, with an appt confirmed with Dr Reed at [facility] for Oct 06. Yesterday Aug 27 morning, he started having hemoptysis, coughing up small amounts of blood about the size of a pea. She was not more short of breath, did not have a fever, no chest pain, no wheezing. She said that he roommate likes the heat higher, which makes her cough. Her coughing was difficult to control, with expectoration of secretions with bright red blood about the size of peas, small but several episodes, and bright red. She told the hospitalist that with coughing, she has chest discomfort, dizziness, lightheadedness and shortness of breath.? Chest CT shows more infiltrates in the bases suggesting new pneumonia. She has an area in the left upper lobe with probable hemo aspiration. White blood cell count is now normal 10, hemoglobin 11.3 mad crit 39.9 with normal platelets. BUN is 34 creatinine 0.8. She had 85% neutrophils. She had a chest CT Aug 27 with glottic soft tissue swelling/edema that almost occludes the airway. See exact description in the report below. Could be artifact from head/neck rotation and breath holding. She has LLL consolidation, ANA LAURA area that suggests hemo-aspiration, bibasilar GGO and acinar infiltrates. To my eyes, her basilar pneumonia appears worse than last admission with chest CT Aug 23. She is on antibiotics, Ceftriaxone and azithromycin IV as well as prednisone. DATA * 08/27/2023- chest CT = Suggestion of glottic soft tissue swelling/edema which nearly occludes the airway. Correlate with respiratory status and symptoms of hoarseness or stridor. In the absence of such symptoms, this is probably secondary to artifact from head/neck rotation and breath holding. Acinar and ground glass pulmonary opacities in the dependent bilateral lower lobes, with a small focus in the dependent left upper lobe, suspicious for hemo-aspiration. Dependent left lower lobe consolidation may represent atelecta
[2023-08-28 17:32] LABS: Glucose Point of Care 172 mg/dl (65-105)
--- NOTE | 2023-08-28 17:43 | WPDPROCEDUR ---
Procedures Other Procedures Procedure 1: Other Procedure: Flexible laryngoscopy consents obtained. Scope less Booker passed transnasally both sides right septal deviation no blood in the nasal passages pharynx and larynx look normal other than edematous tissue. Cords move fully and symmetrically. Not able to view the subglottis is the patient removed the laryngoscope inset was no longer able to perform laryngoscopy. No source of the patient's hemoptysis.
--- NOTE | 2023-08-28 17:44 | WPDCN ---
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 Was start nebulized steroids could consider racemic epi if severe. Patient should be intubatable, that being said we would use a smaller tube the normal. [facility] call me instead the patient was set up for transfer. HPI Data of Consult Date/Time: 08/28/23 17:44 Requesting Physician: Giles Dangelo MD Primary Care Provider: Vasile Evans, Consult Narrative Narrative: Faviola Dillon is a 73 year old female with tracheal stenosis and RSV. Patient reports she is actually feeling better the past several hours and if not has not had an episode of hemoptysis. She inquires as to when dinner will be served. 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 She has been wheelchair dependent since 2019 or 2020. She used to drink alcohol every weekend until she was in her 40s or so. She now only rarely drinks alcohol. She denies any illicit substance use. Her and her significant other raised 2 sons and 1 daughter. Code status: Full code Surrogate decision maker: Germán (son) Smoking status: Never smoker Smoking end date: 09/07/07 Alcohol intake: never Substance use: never Do You Feel Safe in your Home?: Yes Lack of Transportation: No Lack of Food: Never True Current Housing: I Have Housing Concerned About Future Housing: No Difficulty Paying Gas/Electric Bills: No Difficulty Paying for Meds: No Currently Unemployed: No Education: High School Diploma/GED Difficulty w/ Childcare or Family Care: No Spiritual care concerns: No Meds Home Medications and Allergies Home Medications Medication Instructions Recorded Confirmed Type apixaban 5 mg tablet (Eliquis) 5 mg PO BID 08/22/23 08/28/23 History bethanechol chloride 10 mg tablet 10 mg PO TID 08/22/23 08/28/23 History duloxetine 60 mg capsule,delayed 120 mg PO DAILY 08/22/23 08/28/23 History release gabapentin 400 mg capsule 400 mg PO TID 08/22/23 08/28/23 History hydroxyzine HCl 25 mg tablet 25 mg PO Q6H PRN Anxiety 08/22/23 08/28/23 History lisinopril 20 mg tablet 20 mg PO DAILY 08/22/23 08/28/23 History metformin 500 mg tablet 500 mg PO BID 08/22/23 08/28/23 History metoprolol tartrate 25 mg tablet 25 mg PO BID 08/22/23 08/28/23 History montelukast 10 mg tablet 10 mg PO QHS 08/22/23 08/28/23 History ondansetron HCl 4 mg tablet 4 mg PO Q6H PRN Nausea And Vomiting 08/22/23 08/28/23 History oxycodone 5 mg tablet 5 mg PO Q6H PRN Pain (Scale Score 08/22/23 08/28/23 History 4-6) tizanidine 4 mg tablet 4 mg PO Q8H PRN Cramps 08/22/23 08/28/23 History acetamino
--- NOTE | 2023-08-28 18:34 | PC.NURSE ---
Report called to Diane fermin at [facility].
[2023-08-28] MEDS: INSULIN ASPART (*BKC) 100 UNITS/ML SUB-Q (20:12)
[2023-08-28] MEDS: MONTELUKAST SODIUM 10 MG TABLET PO (20:13)
[2023-08-28] MEDS: ATORVASTATIN 40 MG TABLET 80 MG PO (20:13)
[2023-08-28] MEDS: traZODone HCL 50 MG TABLET PO (20:13)
[2023-08-28] MEDS: MELATONIN 3 MG TABLET PO (20:13)
[2023-08-28 20:24] LABS: Glucose Point of Care 239 mg/dl (65-105)
--- NOTE | 2023-09-01 14:50 | PM.TDS ---
Transfer Discharge Sum: Prov Provider Date of admission: 08/28/23 07:57 Primary care physician: Vasile Evans, MD Admitting clinician: Giles Dangelo MD Consults: 08/28/23 08:36 Consult to Physician Routine Comment: S/[place] at 0937 ([facility] Consulting Provider: Rhona Read scallop cutter/MD group to consult: pulmonology Reason for consultation: hemoptysis Has provider been notified: Yes 08/28/23 14:41 Consult to Physician Routine Comment: S/P @ 1640 ([facility] Consulting Provider: Cliff Roland scallop cutter/MD group to consult: ENT Reason for consultation: tacheal stenosis conplicated by RSV Has provider been notified: Yes DS: Admitting Diagnosis Discharge Date 08/28/23 Admitting Diagnosis acute metabolic encephalopathy DS: Discharge Diagnosis Discharge Diagnosis (1) Hemoptysis: Code(s): R04.2 - Hemoptysis Status: Acute Assessment and Plan: Patient developed hemoptysis on 08/27/2023. CT of the chest showing acinar and ground-glass opacities in the bilateral lower lobes and a small focus in the dependent left upper lobe suspicious for him on aspiration, left lower lobe consolidation, mediastinal lymphadenopathy, tracheal stenosis, and marked Goiter. Patient at baseline oxygen needs. Sputum culture ordered Pulmonology consulted. (2) Pneumonia: Code(s): J18.9 - Pneumonia, unspecified organism Status: Acute Assessment and Plan: CT suggestive of pneumonia. Rocephin and is ceftriaxone started (3) [id number] respiratory failure: Qualifiers: Respiratory failure complication: hypoxia and hypercapnia Qualified Code(s): J96.21 - Acute and chronic respiratory failure with hypoxia; J96.22 - Acute and chronic respiratory failure with hypercapnia Code(s): J96.20 - Acute and chronic respiratory failure, unspecified whether with hypoxia or hypercapnia Status: Acute Assessment and Plan: Patient at baseline oxygen requirement. Patient recently admitted at the hospital and discharged on prednisone taper for COPD. Continue to monitor oxygen saturations. (4) Type 2 diabetes mellitus with hyperglycemia, without long-term current use of insulin: Code(s): E11.65 - Type 2 diabetes mellitus with hyperglycemia Status: Acute Assessment and Plan: Insulin Lispro sliding scale, Accu-checks qAc and HS and Hold oral hypoglycemics Initiate hypoglycemic precautions Obtain a HgbA1c (5) Respiratory syncytial virus (RSV): Code(s): B33.8 - Other specified viral diseases Status: Acute Assessment and Plan: Patient tested positive for RSV on 08/22/2023. Supportive care as needed Transfer Discharge Sum: Med Medications Active and Home Medications: Home Medications apixaban 5 mg tablet (Eliquis) 5 mg PO BID 08/22/23 [History Confirmed 08/28/23] bethanechol chloride 10 mg tablet 10 mg PO TID 08/22/23 [History Confirmed 08/28/23] duloxetine 60 mg capsule,delayed release 120 mg PO DAILY 08/22/23 [History Confirmed 08/28/23] gabapentin 400 mg capsule 400 mg PO TID 08/22/23 [History Confirmed 08/28/23] hydroxyzine HCl 25 mg tablet 25 mg PO Q6H PRN Anxiety 08/22/23 [History Confirmed 08/28/23] lisinopril 20 mg tablet 20 mg PO DAILY 08/22/23 [History Confirmed 08/28/23] metformin 500 mg tablet 500 mg PO BID 08/22/23 [History Confirmed 08/28/23] metoprolol tartrate 25 mg tablet 25 mg PO BID 08/22/23 [History Confirmed 08/28/23] montelukast 10 mg tablet 10 mg PO QHS 08/22/23 [History Confirmed 08/28/23] ondansetron HCl 4 mg tablet 4 mg PO Q6H PRN Nausea And Vomiting 08/22/23 [History Confirmed 08/28/23] oxycodone 5 mg tablet 5 mg PO Q6H PRN Pain (Scale Score 4-6) 08/22/23 [History Confirmed 08/28/23] tizanidine 4 mg tablet 4 mg PO Q8H PRN Cramps 08/22/23 [History Confirmed 08/28/23] acetaminophen 500 mg tablet 500 mg PO Q6H PRN Pain (Scale Score 1-3) 08/23/23 [History Confirmed
== END 2023-08-28 20:30 | disposition short-term general hospital (02) | DRG 204 ==
LOC: ANHED 08-28 00:22 → ANH3MEDSUR 08-28 01:37
PROVIDERS: Admitting Provider Internal Medicine; Emergency Provider Emergency Medicine; PCP Internal Medicine; Visit Provider Internal Medicine Critical Care Medicine
DX: R04.2 Hemoptysis (principal); J18.9 Pneumonia, unspecified organism; J96.21 Acute and chronic respiratory failure with hypoxia; J96.22 Acute and chronic respiratory failure with hypercapnia; J95.03 Malfunction of tracheostomy stoma; J96.12 Chronic respiratory failure with hypercapnia; J44.0 Chronic obstructive pulmonary disease with (acute) lower respiratory infection; T17.990A Other foreign object in respiratory tract, part unspecified in causing asphyxiation, initial encounter; B97.4 Respiratory syncytial virus as the cause of diseases classified elsewhere; I50.9 Heart failure, unspecified; E11.65 Type 2 diabetes mellitus with hyperglycemia; E11.42 Type 2 diabetes mellitus with diabetic polyneuropathy; I25.10 Atherosclerotic heart disease of native coronary artery without angina pectoris; E66.01 Morbid (severe) obesity due to excess calories; F32.A Depression, unspecified; F41.9 Anxiety disorder, unspecified; Z96.652 Presence of left artificial knee joint; Z68.39 Body mass index [BMI] 39.0-39.9, adult; Z99.3 Dependence on wheelchair; Z95.5 Presence of coronary angioplasty implant and graft; Z95.0 Presence of cardiac pacemaker; Z79.01 Long term (current) use of anticoagulants; Z99.81 Dependence on supplemental oxygen
CPT/HCPCS: 36415; 71045; 71250; 80053; 82948; 85025; 85055; 85610; 85730; 87040; 93005; 94640; 96374; 96375; 99285; A9270; G0378; J0456; J0696; J1815